=== PATIENT | female | born 1960 | race Caucasian/White ===

== ENCOUNTER 2016-11-10 05:49 | Inpatient (IN) | payer BC, OTHER, SELFPAY ==
[2016-11-10] MEDS ORDERED: Diltiazem 25 MG/5 ML SDV IVPUSH ONE ×2 (06:13→06:51)
[2016-11-10] MEDS ORDERED: Furosemide 40 MG/4 ML VIAL IVPUSH ONE (06:13)
[2016-11-10] MEDS ORDERED: Diltiazem 100 MG in Sodium Chloride 0.9% 100 ML IV SCH (06:15)
[2016-11-10] MEDS ORDERED: Sodium Chloride 0.9% 1,000 ML IV SCH (06:15)
--- NOTE | 2016-11-10 06:20 | EDM.PDOC ---
<August Hairston - Last Filed: 11/10/16 07:58> ED HISTORY OF PRESENT ILLNESS - General Chief Complaint: Respiratory Problem Stated Complaint: SOB Time Seen by Provider: 11/10/16 06:00 - Related Data Allergies/ADRs: Allergies Allergy/AdvReac Type Severity Reaction Status Date / Time erythromycin base Allergy Swelling Verified 11/10/16 11:36 Home Meds: Home Meds Losartan [Cozaar] 25 mg PO DAILY 08/31/14 [History] Sertraline [Zoloft] 50 mg PO DAILY 08/31/14 [History] Course - Vital Signs Last Recorded V/S: Last Vital Signs Temp 36.6 C 11/11/16 23:45 Pulse 92 11/11/16 23:39 Resp 16 11/11/16 23:45 BP 133/75 11/12/16 02:14 Pulse Ox 100 11/11/16 23:45 - Orders/Labs/Meds Orders: Medication Orders Apixaban (Eliquis) 5 mg PO BID [facility] Last Admin: 11/11/16 20:14 Dose: 5 mg Admin: 11/11/16 08:55 Dose: Not Given Admin: 11/11/16 07:58 Dose: 5 mg Admin: 11/10/16 20:58 Dose: 5 mg Admin: 11/10/16 14:03 Dose: 5 mg Diltiazem HCl (Cardizem Cd) 120 mg PO DAILY@1200 XIN Last Admin: 11/11/16 11:08 Dose: Not Given Admin: 11/11/16 10:46 Dose: 120 mg Diltiazem HCl 100 mg/ Sodium (Chloride) 100 mls @ 10 mls/hr IV ASDIRECTED XIN PRN Reason: 10 MG/HR Last Admin: 11/10/16 06:30 Dose: 10 mg/hr, 10 mls/hr Losartan Potassium (Cozaar) 25 mg PO DAILY [facility] Last Admin: 11/11/16 07:59 Dose: 25 mg Admin: 11/10/16 12:59 Dose: 25 mg Metoprolol Tartrate (Lopressor) 5 mg IVPUSH Q6H PRN PRN Reason: Tachycardia Last Admin: 11/11/16 23:39 Dose: 5 mg Admin: 11/11/16 14:36 Dose: 5 mg Admin: 11/11/16 08:03 Dose: 5 mg Admin: 11/10/16 21:01 Dose: 5 mg Metoprolol Tartrate (Lopressor) 25 mg PO TID [facility] Oxymetazoline HCl (Afrin Original 0.05% Nasal [place]) 0 ml RIANA BID PRN PRN Reason: Other Last Admin: 11/11/16 20:15 Dose: 1 spray Sertraline HCl (Zoloft) 50 mg PO DAILY [facility] Last Admin: 11/11/16 07:59 Dose: 50 mg Simvastatin (Zocor) 10 mg PO BEDTIME XIN Last Admin: 11/11/16 20:14 Dose: 10 mg Labs: Laboratory Tests 11/10/16 11/10/16 11/10/16 Range/Units 06:04 06:15 06:15 WBC 9.70 (3.98-10.04) K/mm3 RBC 4.52 (3.98-5.22) M/mm3 Hgb 13.2 (11.2-15.7) gm/L Hct 42.7 (34.1-44.9) % MCV 94.5 (79.4-94.8) fl MCH 29.2 (25.6-32.2) pg MCHC 30.9 L (32.2-35.5) g/dl RDW Std Deviation 45.1 (36.4-46.3) fL Plt Count 248 (182-369) K/mm3 MPV 11.6 (9.4-12.3) fl Neutrophils % (Manual) 74 H (40-60) % Band Neutrophils % 0 (0-10) % Lymphocytes % (Manual) 21 (20-40) % Atypical Lymphs % 0 % Monocytes % (Manual) 4 (2-10) % Eosinophils % (Manual) 1 (0.7-5.8) % Basophils % (Manual) 0 L (0.1-1.2) Platelet Estimate Adequate RBC Morph Comment Normal PT 10.3 (8.0-13.0) SECONDS INR 0.95 Sodium (136-145) mEq/L Potassium (3.5-5.1) mEq/L Chloride (98-107) mEq/L Carbon Dioxide (21-32) mEq/L Anion Gap (5-15) BUN (7-18) mg/dL Creatinine (0.55-1.02) mg/dL Est Cr Clr Drug Dosing mL/min Estimated GFR (MDRD) (>60) mL/min BUN/Creatinine Ratio (14-18) Glucose (74-106) mg/dL Calcium (8.5-10.1) mg/dL Magnesium (1.8-2.4) mg/dl Total Bilirubin (0.2-1.0) mg/dL AST (15-37) U/L ALT (14-59) U/L Alkaline Phosphatase (46-116) U/L CK-MB (CK-2) (0-3.6) ng/ml Troponin I (0.00-0.056) ng/mL C-Reactive Protein (<1.0) mg/dL B-Natriuretic Peptide (0-100) pg/mL Total Protein (6.4-8.2) g/dl Albumin (3.4-5.0) g/dl Globulin gm/dL Albumin/Globulin Ratio (1-2) TSH 3rd Generation (0.358-3.74) uIU/mL Urine Color (Yellow) Urine Appearance (Clear) Urine pH (5.0-8.0) Ur Specific [place] (1.005-1.030) Urine Protein (Negative) Urine Glucose (UA) (Negative) Urine Ketones (Negative) Urine Occult Blood (Negative) Urine Nitrite (Negative) Urine Bilirubin (Negative) Urine Urobilinogen (0.2-1.0) Ur Leukocyte Esterase (Negative) Urine RBC (0-5) /hpf Urine WBC (0-5) /hpf Ur Squamous Epith Cells (0-5) /hpf Urine Bacteria (FEW) /hpf Urine Mucus (FEW) /hpf Mycoplasma pneumon IgM Negative (NEGATIVE) 11/10/16 11/10/16 11/10/16 Range/Units 06:15 06:15 07:47 WBC (3.98-10.04) K/mm3 RBC (3.98-5.22) M/mm3 Hgb (11.2-15.7) gm/L Hct (34.1-44.9) % MCV (79.4-94.8) fl MCH (25.6-32.2) pg MCHC (32.2-35.5) g/dl RDW Std Deviation (36.4-46.3) fL Plt Count (182-369) K/mm3 MPV (9.4-12.3) fl Neutrophils % (Manual) (40-60) % Band Neutrophils % (0-10) % Lymphocytes % (Manual) (20-40) % Atypical Lymphs % % Monocytes % (Manual) (2-10) % Eosinophils % (Manual) (0.7-5.8) % Basophils % (Manual) (0.1-1.2) Platelet Estimate RBC Morph Comment PT (8.0-13.0) SECONDS INR Sodium 141 (136-145) mEq/L Potassium 3.9 (3.5-5.1) mEq/L Chloride 104 (98-107) mEq/L Carbon Dioxide 25 (21-32) mEq/L Anion Gap 15.9 H (5-15) BUN 15 (7-18) mg/dL Creatinine 0.8 (0.55-1.02) mg/dL Est Cr Clr Drug Dosing 82.04 mL/min Estimated GFR (MDRD) > 60 (>60) mL/min BUN/Creatinine Ratio 18.8 H (14-18) Glucose 158 H (74-106) mg/dL Calcium 9.0 (8.5-10.1) mg/dL Magnesium 1.6 L (1.8-2.4) mg/dl Total Bilirubin 0.3 (0.2-1.0) mg/dL AST 19 (15-37) U/L ALT 36 (14-59) U/L Alkaline Phosphatase 92 (46-116) U/L CK-MB (CK-2) 1.2 (0-3.6) ng/ml Troponin I < 0.017 (0.00-0.056) ng/mL C-Reactive Protein 0.8 (<1.0) mg/dL B-Natriuretic Peptide 81 (0-100) pg/mL Total Protein 7.6 (6.4-8.2) g/dl Albumin 3.7 (3.4-5.0) g/dl Globulin 3.9 gm/dL Albumin/Globulin Ratio 1.0 (1-2) TSH 3rd Generation 2.181 (0.358-3.74) uIU/mL Urine Color Light yellow (Yellow) Urine Appearance Clear (Clear) Urine pH 7.0 (5.0-8.0) Ur Specific [place] 1.015 (1.005-1.030) Urine Protein Negative (Negative) Urine Glucose (UA) Negative (Negative) Urine Ketones Negative (Negative) Urine Occult Blood Negative (Negative) Urine Nitrite Negative (Negative) Urine Bilirubin Negative (Negative) Urine Urobilinogen 0.2 (0.2-1.0) Ur Leukocyte Esterase Negative (Negative) Urine RBC 0-5 (0-5) /hpf Urine WBC 0-5 (0-5) /hpf Ur Squamous Epith Cells 0-5 (0-5) /hpf Urine Bacteria Occasional (FEW) /hpf Urine Mucus Not seen (FEW) /hpf Mycoplasma pneumon IgM (NEGATIVE) Meds: Medications Generic Name Dose Route Start Last Admin Trade Name Freq PRN Reason Stop Dose Admin Apixaban 5 mg 11/10/16 13:30 11/11/16 20:14 Eliquis PO 5 mg BID XIN Administration Diltiazem HCl 120 mg 11/11/16 12:00 11/11/16 11:08 Cardizem Cd PO Not Given DAILY@1200 XIN Diltiazem HCl 100 mg/ Sodium 100 mls @ 10 mls/hr 11/10/16 06:15 11/10/16 06: 30 Chloride IV 10 mg/hr ASDIRECTED XIN 10 mls/hr 10 MG/HR Administration Losartan Potassium 25 mg 11/10/16 12:15 11/11/16 07:59 Cozaar PO 25 mg DAILY XIN Administration Metoprolol Tartrate 5 mg 11/10/16 15:24 11/11/16 23:39 Lopressor IVPUSH 5 mg Q6H PRN Administration Tachycardia Metoprolol Tartrate 25 mg 11/12/16 09:00 Lopressor PO TID XIN Oxymetazoline HCl 0 ml 11/11/16 18:13 11/11/16 20:15 Afrin Original 0.05% Nasal [place] RIANA 1 spray BID PRN Administration Other Sertraline HCl 50 mg 11/11/16 09:00 11/11/16 07:59 Zoloft PO 50 mg DAILY XIN Administration Simvastatin 10 mg 11/11/16 21:00 11/11/16 20:14 Zocor PO 10 mg BEDTIME XIN Administration Discontinued Medications Generic Name Dose Route Start Last Admin Trade Name Freq PRN Reason Stop Dose Admin Diltiazem HCl 10 mg 11/10/16 06:13 11/10/16 06:27 Diltiazem IVPUSH 03/06/17 06:14 10 mg ONETIME ONE Administration Diltiazem HCl 10 mg 11/10/16 06:51 11/10/16 07:17 Diltiazem IVPUSH 11/10/16 06:52 10 mg ONETIME ONE Administration Diltiazem HCl 30 mg 11/10/16 14:00 11/10/16 13:00 Cardizem PO 30 mg Q8HR XIN Administration Diltiazem HCl 60 mg 11/10/16 22:00 11/11/16 06:32 Cardizem PO 60 mg Q8HR XIN Administration Diltiazem HCl 30 mg 11/10/16 15:23 11/10/16 15:39 Cardizem PO 11/10/16 15:24 30 mg ONETIME ONE Administration Furosemide 40 mg 11/10/16 06:13 11/10/16 06:23 Lasix IVPUSH 11/10/16 06:14 40 mg NOW ONE Administration Furosemide 20 mg 11/11/16 10:31 11/11/16 10:46 Lasix IVPUSH 11/11/16 10:32 20 mg NOW ONE Administration Sodium Chloride 1,000 mls @ 75 mls/hr 11/10/16 06:15 11/10/16 06:25 Normal Saline IV 75 mls/hr ASDIRECTED XIN Administration Magnesium Sulfate 2 gm/ Premix 50 mls @ 25 mls/hr 11/10/16 15:30 11/10/16 16: 20 IV 11/10/16 17:29 25 mls/hr ONETIME ONE Administration Metoprolol Tartrate 25 mg 11/11/16 21:00 11/11/16 20:14 Lopressor PO 25 mg BID XIN Administration Metoprolol Tartrate 25 mg 11/11/16 15:44 11/11/16 16:08 Lopressor PO 11/11/16 15:45 25 mg ONETIME ONE Administration - Re-Assessments/Exams Free Text/Narrative Re-Assessment/Exam: 11/10/16 07:50. have assumed care from Dr. James after change of shift. I agree with his history and exam. Patient has voided 1200 cc. She is still short of breath but feeling better from arrival. her chest pain is gone. Her troponin did come back negative. chest x-ray shows significant pulmonary congestion. Other labs as documented. Her rate is running in the 90s to low 100s on diltiazem drip. I discussed with Dr. Jennings, hospitalist end user consultant. Arrangements have been made for inpatient admission. She has asked that I submit an order for cardiac ultrasound. That has been done. Blood pressure and sats remained stable. Departure - Departure Time of Disposition: 07:40 Disposition: Admitted As Inpatient 68 Condition: fair Clinical Impression: Atrial fibrillation with rapid ventricular response Congestive heart failure Qualifiers: Congestive heart failure type: unspecified congestive heart failure type Congestive heart failure chronicity: acute Qualified Code(s): I50.9 - Heart failure, unspecified ED Communication - Discussed Case With (1) Discussed Case With (1): Admitting Provider (Dr Jennings, decion to admit at about 7:40) <Roberto James - Last Filed: 11/12/16 04:18> ED HISTORY OF PRESENT ILLNESS - General Source of Information: Reports: Patient History Limitations: Reports: No limitations - History of Present Illness INITIAL COMMENTS - FREE TEXT/NARRATIVE: 55-year-old female presents to the ED with complaints of feeling short of breath and a heaviness in her central chest that does not radiate through the back neck shoulders or arms. Associated cough without any phlegm production. He aware of palpitations or feeling like her heart is racing off-and-on tonight. She states she felt fine when she went to bed but shortly thereafter developed symptoms of palpitations and gradually worsening shortness of breath overnight. She was unable to get any sleep. She does not believe she's ever has any similar problems. She takes medication for depression and for hypertension. No recent changes in medications. She states she could walk from the parking lot into the hospital with a fairly normal pace. Denies feeling dizzy or lightheaded. A heaviness or pain in her chest tends to wax and wane. She has no known heart problems.used to smoke but quit 24 years ago. Currently on no diet medications. No heavy alcohol use over the weekend. Symptom Onset Date: 11/09/16 Symptom Onset Time: 00:00 Timing/Duration: Reports: Hour(s):, Sudden onset, Waxing/waning Severity: moderate Location, General: Reports: chest (chest heaviness waxes and wanes but at times was quite heavy like an elephant sitting on her chest. Associated with dyspnea and minimal nonproductive cough.) Quality: Reports: Dull, Pressure. Denies: Same as previous episode Improves with: Reports: None Worsens with: Reports: Other Context, General: Reports: Other (was lying down in bed when symptoms seemed to come on.). Denies: Activity (wworsens when she lies down. She's been sitting up most of the night.), Exercise, Lifting, Sick contact, Trauma Associated Symptoms (General): Reports: chest pain, cough (see history of present illness), shortness of breath. 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 (see below) (none) Past Medical History Cardiovascular History: Reports: Hypertension Psychiatric History: Reports: Anxiety, Depression Endocrine/Metabolic History: Reports: Obesity/BMI 30+ Social & Family History - Tobacco Use Smoking Status *Q: Never Smoker (quit 24 years ago.) - Alcohol Use Days Per Week of Alcohol Use: 2 Number of Drinks Per Day: 2 Total Drinks Per Week: 4 - Recreational Drug Use Recreational Drug Use: No - Living Situation & Occupation Living situation: Reports: Occupation: employed ED ROS GENERAL - Review of Systems Review Of Systems: See Below Constitutional: Reports: weakness, fatigue. Denies: weight loss HEENT: Reports: No symptoms Respiratory: Reports: shortness of breath, cough (nonproductive). Denies: wheezing, pleuritic chest pain, sputum, hemoptysis, other Cardiovascular: Reports: Chest pain (intermittent chest heaviness mostly central chest.), Blood pressure problem, Dyspnea on exertion, Orthopnea, Palpitations. Denies: Claudication (chronic hypertension but usually well controlled with medication.), Edema, Lightheadedness Endocrine: Reports: fatigue GI/Abdominal: Reports: No symptoms : Reports: no symptoms Musculoskeletal: Reports: back pain Skin: Reports: no symptoms (intermittent also some low back pain and knee pain.) Neurological: Reports: weakness. Denies: confusion, dizziness, headache, numbness, paresthesia, pre-existing deficit, seizure, syncope, tingling, tremors , trouble speaking, difficulty walking, change in speech, gait disturbance Psychiatric: Reports: Depression Hematologic/Lymphatic: Reports: no symptoms Immunologic: Reports: no symptoms ED EXAM, GENERAL - Physical Exam Exam: See Below Exam Limited By: Respiratory distress (she is in mild respiratory distress.) General Appearance: alert, moderate distress (respiratory distress. Skin is cool and a little clammy.) Eye Exam: bilateral eye: normal inspection Throat/Mouth: Normal inspection, Normal lips, Normal teeth, Normal oropharynx, Other (she reports she's just getting over a strep throat. Took course of Zithromax and was finished November 01) Head: atraumatic, normocephalic Neck: normal inspection, supple, non-tender, full range of motion, other ( elevated jugular venous pulsations.). No: carotid bruit, lymphadenopathy (L), lymphadenopathy (R) Respiratory/Chest: lungs clear, normal breath sounds, respiratory distress ( mild tachypnea 24-26 per minute). No: rales, rhonchi, wheezing Cardiovascular: JVD (2 cm below the angle of her mandible.), tachycardia, irregularly irregular (rate as high as 158 per minute and monitor reveals atrial fibrillation which she is not known to have.). No: normal peripheral pulses Peripheral Pulses: 1+: posterior tibial (L) (pulses are faint he felt in her feet.), posterior tibial (R), dorsalis pedis (L), dorsalis pedis (R) GI/Abdominal: normal bowel sounds, soft, non tender, no organomegaly, no abnormal bruit, no mass, other (obesity limits ability to palpate solid organs.) Back Exam: normal inspection, full range of motion. No: CVA tenderness (L), CVA tenderness (R) Extremities: pedal edema (trace edema around the ankles and dorsal feet.) Neurological: alert, oriented, CN II-XII intact, normal cognition, normal gait Psychiatric: normal mood, anxious (mild to moderate) Skin Exam: Cool, Diaphoretic (very slightly diaphoretic) EKG INTERPRETATION EKG Date: 11/10/16 Time: 06:05 Rhythm: a-fib Rate (beats/min): 132 (rate ranges from 108-158 per minute) [place]: normal P-wave: absent QRS: other (early R wave transition.) ST-T: depressed (depressed V3 to V6 and lead 2.) QT: shortened EKG Interpretation Comments: atrial fibrillation with rapid ventricular rate. Cannot rule out ischemia in the anterior apex of the heart. Course - Orders/Labs/Meds Orders: Medication Orders Apixaban (Eliquis) 5 mg PO BID [facility] Last Admin: 11/11/16 20:14 Dose: 5 mg Admin: 11/11/16 08:55 Dose: Not Given Admin: 11/11/16 07:58 Dose: 5 mg Admin: 11/10/16 20:58 Dose: 5 mg Admin: 11/10/16 14:03 Dose: 5 mg Diltiazem HCl (Cardizem Cd) 120 mg PO DAILY@1200 [facility] Last Admin: 11/11/16 11:08 Dose: Not Given Admin: 11/11/16 10:46 Dose: 120 mg Diltiazem HCl 100 mg/ Sodium (Chloride) 100 mls @ 10 mls/hr IV ASDIRECTED [facility] PRN Reason: 10 MG/HR Last Admin: 11/10/16 06:30 Dose: 10 mg/hr, 10 mls/hr Losartan Potassium (Cozaar) 25 mg PO DAILY [facility] Last Admin: 11/11/16 07:59 Dose: 25 mg Admin: 11/10/16 12:59 Dose: 25 mg Metoprolol Tartrate (Lopressor) 5 mg IVPUSH Q6H PRN PRN Reason: Tachycardia Last Admin: 11/11/16 23:39 Dose: 5 mg Admin: 11/11/16 14:36 Dose: 5 mg Admin: 11/11/16 08:03 Dose: 5 mg Admin: 11/10/16 21:01 Dose: 5 mg Metoprolol Tartrate (Lopressor) 25 mg PO TID [facility] Oxymetazoline HCl (Afrin Original 0.05% Nasal [place]) 0 ml RIANA BID PRN PRN Reason: Other Last Admin: 11/11/16 20:15 Dose: 1 spray Sertraline HCl (Zoloft) 50 mg PO DAILY [facility] Last Admin: 11/11/16 07:59 Dose: 50 mg Simvastatin (Zocor) 10 mg PO BEDTIME [facility] Last Admin: 11/11/16 20:14 Dose: 10 mg Labs: Laboratory Tests 11/10/16 11/10/16 11/10/16 Range/Units 06:04 06:15 06:15 WBC 9.70 (3.98-10.04) K/mm3 RBC 4.52 (3.98-5.22) M/mm3 Hgb 13.2 (11.2-15.7) gm/L Hct 42.7 (34.1-44.9) % MCV 94.5 (79.4-94.8) fl MCH 29.2 (25.6-32.2) pg MCHC 30.9 L (32.2-35.5) g/dl RDW Std Deviation 45.1 (36.4-46.3) fL Plt Count 248 (182-369) K/mm3 MPV 11.6 (9.4-12.3) fl Neutrophils % (Manual) 74 H (40-60) % Band Neutrophils % 0 (0-10) % Lymphocytes % (Manual) 21 (20-40) % Atypical Lymphs % 0 % Monocytes % (Manual) 4 (2-10) % Eosinophils % (Manual) 1 (0.7-5.8) % Basophils % (Manual) 0 L (0.1-1.2) Platelet Estimate Adequate RBC Morph Comment Normal PT 10.3 (8.0-13.0) SECONDS INR 0.95 Sodium (136-145) mEq/L Potassium (3.5-5.1) mEq/L Chloride (98-107) mEq/L Carbon Dioxide (21-32) mEq/L Anion Gap (5-15) BUN (7-18) mg/dL Creatinine (0.55-1.02) mg/dL Est Cr Clr Drug Dosing mL/min Estimated GFR (MDRD) (>60) mL/min BUN/Creatinine Ratio (14-18) Glucose (74-106) mg/dL Calcium (8.5-10.1) mg/dL Magnesium (1.8-2.4) mg/dl Total Bilirubin (0.2-1.0) mg/dL AST (15-37) U/L ALT (14-59) U/L Alkaline Phosphatase (46-116) U/L CK-MB (CK-2) (0-3.6) ng/ml Troponin I (0.00-0.056) ng/mL C-Reactive Protein (<1.0) mg/dL B-Natriuretic Peptide (0-100) pg/mL Total Protein (6.4-8.2) g/dl Albumin (3.4-5.0) g/dl Globulin gm/dL Albumin/Globulin Ratio (1-2) TSH 3rd Generation (0.358-3.74) uIU/mL Urine Color (Yellow) Urine Appearance (Clear) Urine pH (5.0-8.0) Ur Specific [place] (1.005-1.030) Urine Protein (Negative) Urine Glucose (UA) (Negative) Urine Ketones (Negative) Urine Occult Blood (Negative) Urine Nitrite (Negative) Urine Bilirubin (Negative) Urine Urobilinogen (0.2-1.0) Ur Leukocyte Esterase (Negative) Urine RBC (0-5) /hpf Urine WBC (0-5) /hpf Ur Squamous Epith Cells (0-5) /hpf Urine Bacteria (FEW) /hpf Urine Mucus (FEW) /hpf Mycoplasma pneumon IgM Negative (NEGATIVE) 11/10/16 11/10/16 11/10/16 Range/Units 06:15 06:15 07:47 WBC (3.98-10.04) K/mm3 RBC (3.98-5.22) M/mm3 Hgb (11.2-15.7) gm/L Hct (34.1-44.9) % MCV (79.4-94.8) fl MCH (25.6-32.2) pg MCHC (32.2-35.5) g/dl RDW Std Deviation (36.4-46.3) fL Plt Count (182-369) K/mm3 MPV (9.4-12.3) fl Neutrophils % (Manual) (40-60) % Band Neutrophils % (0-10) % Lymphocytes % (Manual) (20-40) % Atypical Lymphs % % Monocytes % (Manual) (2-10) % Eosinophils % (Manual) (0.7-5.8) % Basophils % (Manual) (0.1-1.2) Platelet Estimate RBC Morph Comment PT (8.0-13.0) SECONDS INR Sodium 141 (136-145) mEq/L Potassium 3.9 (3.5-5.1) mEq/L Chloride 104 (98-107) mEq/L Carbon Dioxide 25 (21-32) mEq/L Anion Gap 15.9 H (5-15) BUN 15 (7-18) mg/dL Creatinine 0.8 (0.55-1.02) mg/dL Est Cr Clr Drug Dosing 82.04 mL/min Estimated GFR (MDRD) > 60 (>60) mL/min BUN/Creatinine Ratio 18.8 H (14-18) Glucose 158 H (74-106) mg/dL Calcium 9.0 (8.5-10.1) mg/dL Magnesium 1.6 L (1.8-2.4) mg/dl Total Bilirubin 0.3 (0.2-1.0) mg/dL AST 19 (15-37) U/L ALT 36 (14-59) U/L Alkaline Phosphatase 92 (46-116) U/L CK-MB (CK-2) 1.2 (0-3.6) ng/ml Troponin I < 0.017 (0.00-0.056) ng/mL C-Reactive Protein 0.8 (<1.0) mg/dL B-Natriuretic Peptide 81 (0-100) pg/mL Total Protein 7.6 (6.4-8.2) g/dl Albumin 3.7 (3.4-5.0) g/dl Globulin 3.9 gm/dL Albumin/Globulin Ratio 1.0 (1-2) TSH 3rd Generation 2.181 (0.358-3.74) uIU/mL Urine Color Light yellow (Yellow) Urine Appearance Clear (Clear) Urine pH 7.0 (5.0-8.0) Ur Specific [place] 1.015 (1.005-1.030) Urine Protein Negative (Negative) Urine Glucose (UA) Negative (Negative) Urine Ketones Negative (Negative) Urine Occult Blood Negative (Negative) Urine Nitrite Negative (Negative) Urine Bilirubin Negative (Negative) Urine Urobilinogen 0.2 (0.2-1.0) Ur Leukocyte Esterase Negative (Negative) Urine RBC 0-5 (0-5) /hpf Urine WBC 0-5 (0-5) /hpf Ur Squamous Epith Cells 0-5 (0-5) /hpf Urine Bacteria Occasional (FEW) /hpf Urine Mucus Not seen (FEW) /hpf Mycoplasma pneumon IgM (NEGATIVE) Meds: Medications Generic Name Dose Route Start Last Admin Trade Name Freq PRN Reason Stop Dose Admin Apixaban 5 mg 11/10/16 13:30 11/11/16 20:14 Eliquis PO 5 mg BID [facility] Administration Diltiazem HCl 120 mg 11/11/16 12:00 11/11/16 11:08 Cardizem Cd PO Not Given DAILY@1200 XIN Diltiazem HCl 100 mg/ Sodium 100 mls @ 10 mls/hr 11/10/16 06:15 11/10/16 06: 30 Chloride IV 10 mg/hr ASDIRECTED XIN 10 mls/hr 10 MG/HR Administration Losartan Potassium 25 mg 11/10/16 12:15 11/11/16 07:59 Cozaar PO 25 mg DAILY XIN Administration Metoprolol Tartrate 5 mg 11/10/16 15:24 11/11/16 23:39 Lopressor IVPUSH 5 mg Q6H PRN Administration Tachycardia Metoprolol Tartrate 25 mg 11/12/16 09:00 Lopressor PO TID XIN Oxymetazoline HCl 0 ml 11/11/16 18:13 11/11/16 20:15 Afrin Original 0.05% Nasal [place] RIANA 1 spray BID PRN Administration Other Sertraline HCl 50 mg 11/11/16 09:00 11/11/16 07:59 Zoloft PO 50 mg DAILY XIN Administration Simvastatin 10 mg 11/11/16 21:00 11/11/16 20:14 Zocor PO 10 mg BEDTIME XIN Administration Discontinued Medications Generic Name Dose Route Start Last Admin Trade Name Freq PRN Reason Stop Dose Admin Diltiazem HCl 10 mg 11/10/16 06:13 11/10/16 06:27 Diltiazem IVPUSH 11/10/16 06:14 10 mg ONETIME ONE Administration Diltiazem HCl 10 mg 11/10/16 06:51 11/10/16 07:17 Diltiazem IVPUSH 11/10/16 06:52 10 mg ONETIME ONE Administration Diltiazem HCl 30 mg 11/10/16 14:00 11/10/16 13:00 Cardizem PO 30 mg Q8HR XIN Administration Diltiazem HCl 60 mg 11/10/16 22:00 11/11/16 06:32 Cardizem PO 60 mg Q8HR XIN Administration Diltiazem HCl 30 mg 11/10/16 15:23 11/10/16 15:39 Cardizem PO 11/10/16 15:24 30 mg ONETIME ONE Administration Furosemide 40 mg 11/10/16 06:13 11/10/16 06:23 Lasix IVPUSH 11/10/16 06:14 40 mg NOW ONE Administration Furosemide 20 mg 11/11/16 10:31 11/11/16 10:46 Lasix IVPUSH 11/11/16 10:32 20 mg NOW ONE Administration Sodium Chloride 1,000 mls @ 75 mls/hr 11/10/16 06:15 11/10/16 06:25 Normal Saline IV 75 mls/hr ASDIRECTED XIN Administration Magnesium Sulfate 2 gm/ Premix 50 mls @ 25 mls/hr 11/10/16 15:30 11/10/16 16: 20 IV 11/10/16 17:29 25 mls/hr ONETIME ONE Administration Metoprolol Tartrate 25 mg 11/11/16 21:00 11/11/16 20:14 Lopressor PO 25 mg BID XIN Administration Metoprolol Tartrate 25 mg 11/11/16 15:44 11/11/16 16:08 Lopressor PO 11/11/16 15:45 25 mg ONETIME ONE Administration - Radiology Interpretation Free Text/Narrative:: 55-year-old female arrives in the ED with filling of palpitations and intermittent waxing and waning chest pressure discomfort overnight. She believes symptoms started shortly after she went to bed last night around midnight. She is aware of intermittent palpitations in the chest and heart racing. Associated heaviness in her chest intermittently increasing shortness of breath overnight. Nonproductive cough development. No fever or chills. For a while she thought she was just coming down with an upper respiratory tract infection. On presentation to the ED heart rate was noted to be fast and irregularly irregular compatible with age fibrillation. She has no history of A. fib. Weight is 108-158 per minute. ECG suggests some ST segment depression V3 to be 6 as well as in lead 2 suggestive of possible ischemic changes. Plan one view chest x-ray. Routine labs to include a BNP TSH serum magnesium level. She'll be given Lasix 40 mg IV as clinically she is in pulmonary edema. O2 will be provided at 2 L per minute by nasal prongs to relieve some of her air hunger. We'll start Cardizem 10 mg IV bolus followed by 10 mg per hour drip. - Re-Assessments/Exams Free Text/Narrative Re-Assessment/Exam: 11/10/16 06:41heart rate is around 100 per minute still in atrial fibrillation. Repeat is 164/100. O2 sats are 97% on 2 L. 11/10/16 06:52shbarbie feels like she can get a deeper breath of air now. There is no more heaviness in her central chest. Heart rate is souring anywhere between 114 to as high as 1:30 still undergoing to give her further 10 mg bolus of Cardizem. It may also help further reduce her blood pressure which is still 165/ 100. Labs have not yet started to be run yet. As it is changes shift I will be changing training care old this patient over to Dr. Schulz. An ICU bed is available once labs are back. I have not yet spoken to the end user consultant hospitalist.
--- NOTE | 2016-11-10 07:36 | CR ---
Chest: Portable view of the chest was obtained. Comparison: No previous chest x-ray. Heart size and mediastinum are within normal limits for portable technique. Lungs are clear with no acute infiltrates. Bony structures show degenerative spurring within the right acromioclavicular joint. Minimal scoliosis is present. Impression: 1. Incidental findings. Nothing acute is identified on portable chest x-ray. Diagnostic code #2
--- NOTE | 2016-11-10 10:56 | PCM.HP ---
H&P History of Present Illness - General Date of Service: 11/10/16 Admit Problem/Dx: Admission Diagnosis/Problem Admission Diagnosis/Problem Atrial fibrillation Source of Information: Patient, Provider History Limitations: Reports: No limitations - History of Present Illness Initial Comments - Free Text/Narative: 55 year old female with a BMI 51.8, PMH hypertension, ORIANA unknown, has had several recent episodes of palpitations and chest pain with the last 24-48 hours. The patient also reports a cough, chest X ray suggest pulmonary congestion. The patient received IV lasix in the ED; a cardizem gtt was started, the patient is currently in AFib with a controlled venticular rate. Onset of Symptoms: Reports: sudden Symptom Onset Date: 11/09/16 Duration of Symptoms: Reports: Day(s):, Getting worse Location: Reports: chest Quality: Reports: Pressure Improves with: Reports: Medication Worsens with: Reports: None Associated Symptoms: Reports: shortness of breath - Related Data Allergies/Adverse Reactions: Allergies Allergy/AdvReac Type Severity Reaction Status Date / Time erythromycin base Allergy Swelling Verified 11/10/16 11:36 Home Medications: Home Meds Losartan [Cozaar] 25 mg PO DAILY 08/31/14 [History] Sertraline [Zoloft] 50 mg PO DAILY 08/31/14 [History] Past Medical History Cardiovascular History: Reports: Hypertension Psychiatric History: Reports: Anxiety, Depression Endocrine/Metabolic History: Reports: Obesity/BMI 30+ - Past Surgical History HEENT Surgical History: Reports: Tonsillectomy Social & Family History - Family History Family Medical History: Noncontributory - Tobacco Use Smoking Status *Q: Never Smoker (quit 24 years ago.) Years of Tobacco use: 5 Packs/Tins Daily: 0.5 - Caffeine Use Caffeine Use: Reports: Coffee - Alcohol Use Days Per Week of Alcohol Use: 2 Number of Drinks Per Day: 2 Total Drinks Per Week: 4 - Recreational Drug Use Recreational Drug Use: No - Living Situation & Occupation Living situation: Reports: Occupation: employed H&P Review of Systems - Review of Systems: Review Of Systems: See Below General: Reports: weakness, fatigue HEENT: Reports: no symptoms Pulmonary: Reports: shortness of breath Cardiovascular: Reports: chest pain Gastrointestinal: Reports: No symptoms Genitourinary: Reports: no symptoms Musculoskeletal: Reports: no symptoms Skin: Reports: no symptoms Psychiatric: Reports: no symptoms Neurological: Reports: no symptoms Hematologic/Lymphatic: Reports: no symptoms Immunologic: Reports: no symptoms Exam - Exam Exam: See Below - Vital Signs Vital Signs: Last Vital Signs Temp 36.9 C 11/10/16 08:28 Pulse 112 H 11/10/16 06:30 Resp 16 11/10/16 08:28 BP 166/89 H 11/10/16 09:00 Pulse Ox 95 11/10/16 08:28 Weight: 154.448 kg - Exam Quality Assessment: DVT prophylaxis General: alert, oriented, cooperative HEENT: Conjunctiva clear, EACs clear, EOMI, Mucosa moist & pink, Nares patent, Normal nasal septum, Pupils equal Neck: supple, trachea midline Lungs: Normal respiratory effort Cardiovascular: regular rate, irregular rhythm, other (distant heart sounds) Abdomen: normal bowel sounds, soft (Female) Exam: Deferred. No: Products of conception Rectal (Female) Exam: Deferred Back Exam: normal inspection Extremities: normal pulses Skin: warm Neurological: cranial nerves intact Neuro Extensive - Mental Status: alert, oriented x3, normal mood/affect, normal cognition, memory intact Neuro Extensive - Motor, Sensory, Reflexes: CN II-XII intact Psychiatric: alert, normal affect, normal mood - Patient Data Result Diagrams: 11/10/16 06:15 11/10/16 06:15 *Q Meaningful Use (ADM) - VTE *Q VTE Criteria *Q: - Stroke *Q Stroke Criteria *Q: - AMI *Q AMI Criteria *Q: Problem List Initiated/Reviewed/Updated: Yes Orders Last 24hrs: Active Orders 24 hr Category Date Time Status Heart Healthy Diet [DIET] Diet 11/10/16 Breakfast Active Medication Orders Diltiazem HCl 100 mg/ Sodium (Chloride) 100 mls @ 10 mls/hr IV ASDIRECTED XIN PRN Reason: 10 MG/HR Last Admin: 11/10/16 06:30 Dose: 10 mg/hr, 10 mls/hr Sodium Chloride (Normal Saline) 1,000 mls @ 75 mls/hr IV ASDIRECTED XIN Last Admin: 11/10/16 06:25 Dose: 75 mls/hr Assessment/Plan Comment:: Impression: A fib with RVR [id number], 2, therefore a 2.2% risk of CVA; score 2 or greater is considered a moderate risk. Chest pain Chronic Morbid Obesity Hypertension Lipid status is unknown Plan: Continue Cardizem gtt Start oral AV farzaneh mark Discuss NOACs, will start Eliquis Wt Loss Ischemic work up including stress test and 2D echo DVT/PT prophylaxis
[2016-11-10] MEDS: Losartan 25 MG Tab PO SCH (12:59)
[2016-11-10] MEDS: Apixaban 5 MG Tab PO SCH ×2 (14:03→20:58)
[2016-11-10] MEDS ORDERED: Magnesium Sulfate/Water 2 GM in Premix Bag 1 BAG IV ONE (15:30)
[2016-11-10] MEDS: Metoprolol Tartrate 5 MG/5 ML SDV IVPUSH PRN (21:01)
[2016-11-11] MEDS: Apixaban 5 MG Tab PO SCH ×3 (07:58→20:14)
[2016-11-11] MEDS: Sertraline 50 MG Tab PO SCH (07:59)
[2016-11-11] MEDS: Losartan 25 MG Tab PO SCH (07:59)
[2016-11-11] MEDS: Metoprolol Tartrate 5 MG/5 ML SDV IVPUSH PRN ×3 (08:03→23:39)
[2016-11-11] MEDS ORDERED: Furosemide 40 MG/4 ML VIAL IVPUSH ONE (10:31)
[2016-11-11] MEDS: Diltiazem 120 MG Cap.CD PO SCH ×2 (10:46→11:08)
--- NOTE | 2016-11-11 11:09 | CR ---
Chest: Frontal view of the chest was obtained. Comparison: Previous chest x-ray of 11/10/16. Heart size is slightly prominent but accentuated from portable technique. Upper mediastinum is within normal limits. Lungs are clear. Bony structures are grossly intact. Impression: 1. Nothing acute is appreciated on portable chest x-ray. Diagnostic code #1
--- NOTE | 2016-11-11 15:39 | PCM.PN ---
- General Info Date of Service: 11/11/16 Functional Status: Reports: tolerating diet, ambulating, urinating - Review of Systems General: Reports: no symptoms HEENT: Reports: no symptoms Pulmonary: Reports: shortness of breath Cardiovascular: Reports: no symptoms Gastrointestinal: Reports: No symptoms Genitourinary: Reports: no symptoms Musculoskeletal: Reports: no symptoms Skin: Reports: no symptoms Neurological: Reports: no symptoms Psychiatric: Reports: no symptoms - Patient Data Vitals - most recent: Last Vital Signs Temp 36.6 C 11/11/16 12:46 Pulse 108 H 11/11/16 14:36 Resp 16 11/11/16 12:46 BP 155/83 H 11/11/16 14:36 Pulse Ox 95 11/11/16 12:46 Weight - most recent: 152.271 kg I&O - last 24 hours: Intake & Output 11/11/16 11/11/16 11/11/16 06:59 14:59 22:59 Intake Total 525 1246 Output Total 700 800 Balance -175 446 Lab Results last 24 hrs: Laboratory Results - last 24 hr 11/10/16 11/11/16 11/11/16 Range/Units 17:24 05:15 05:15 WBC 9.66 (3.98-10.04) K/mm3 RBC 4.36 (3.98-5.22) M/mm3 Hgb 12.9 (11.2-15.7) gm/L Hct 40.8 (34.1-44.9) % MCV 93.6 (79.4-94.8) fl MCH 29.6 (25.6-32.2) pg MCHC 31.6 L (32.2-35.5) g/dl RDW Std Deviation 45.3 (36.4-46.3) fL Plt Count 229 (182-369) K/mm3 MPV 11.2 (9.4-12.3) fl Neut % (Auto) 71.2 H (34.0-71.1) % Lymph % (Auto) 19.0 L (19.3-51.7) % Turner % (Auto) 7.9 (4.7-12.5) % Eos % (Auto) 1.6 (0.7-5.8) Baso % (Auto) 0.2 (0.1-1.2) % Neut # 6.88 H (1.56-6.13) K/mm3 Lymph # 1.84 (1.18-3.74) K/mm3 Turner # 0.76 H (0.24-0.36) K/mm3 Eos # 0.15 (0.04-0.36) K/mm3 Baso # 0.02 (0.01-0.08) K/mm3 Sodium 141 (136-145) mEq/L Potassium 3.9 (3.5-5.1) mEq/L Chloride 105 (98-107) mEq/L Carbon Dioxide 28 (21-32) mEq/L Anion Gap 11.9 (5-15) BUN 12 (7-18) mg/dL Creatinine 0.7 (0.55-1.02) mg/dL Est Cr Clr Drug Dosing 93.76 mL/min Estimated GFR (MDRD) > 60 (>60) mL/min BUN/Creatinine Ratio 17.1 (14-18) Glucose 131 H (74-106) mg/dL POC Glucose 99 (70-105) mg/dL Hemoglobin A1c (4.50-6.20) % Calcium 9.1 (8.5-10.1) mg/dL Troponin I < 0.017 (0.00-0.056) ng/mL Triglycerides 127 (<150) mg/dL Cholesterol 172 (<200) mg/dL LDL Cholesterol Direct 104 H* (<100) mg/dL HDL Cholesterol 52.0 (40-59) mg/dL 11/11/16 Range/Units 05:15 WBC (3.98-10.04) K/mm3 RBC (3.98-5.22) M/mm3 Hgb (11.2-15.7) gm/L Hct (34.1-44.9) % MCV (79.4-94.8) fl MCH (25.6-32.2) pg MCHC (32.2-35.5) g/dl RDW Std Deviation (36.4-46.3) fL Plt Count (182-369) K/mm3 MPV (9.4-12.3) fl Neut % (Auto) (34.0-71.1) % Lymph % (Auto) (19.3-51.7) % Turner % (Auto) (4.7-12.5) % Eos % (Auto) (0.7-5.8) Baso % (Auto) (0.1-1.2) % Neut # (1.56-6.13) K/mm3 Lymph # (1.18-3.74) K/mm3 Turner # (0.24-0.36) K/mm3 Eos # (0.04-0.36) K/mm3 Baso # (0.01-0.08) K/mm3 Sodium (136-145) mEq/L Potassium (3.5-5.1) mEq/L Chloride (98-107) mEq/L Carbon Dioxide (21-32) mEq/L Anion Gap (5-15) BUN (7-18) mg/dL Creatinine (0.55-1.02) mg/dL Est Cr Clr Drug Dosing mL/min Estimated GFR (MDRD) (>60) mL/min BUN/Creatinine Ratio (14-18) Glucose (74-106) mg/dL POC Glucose (70-105) mg/dL Hemoglobin A1c 6.30 H (4.50-6.20) % Calcium (8.5-10.1) mg/dL Troponin I (0.00-0.056) ng/mL Triglycerides (<150) mg/dL Cholesterol (<200) mg/dL LDL Cholesterol Direct (<100) mg/dL HDL Cholesterol (40-59) mg/dL Arturo Results last 24 hrs: Microbiology 11/10/16 14:00 Influenza Type A Antigen Screen - Final Nasopharyngeal Swab - Nare, Right NEGATIVE INFLUENZA A VIRUS AG Influenza Type B Antigen Screen - Final NEGATIVE INFLUENZA B VIRUS AG Med Orders - Current: Current Medications Apixaban (Eliquis) 5 mg PO BID [facility] Last Admin: 11/11/16 08:55 Dose: Not Given Diltiazem HCl (Cardizem Cd) 120 mg PO DAILY@1200 [facility] Last Admin: 11/11/16 11:08 Dose: Not Given Diltiazem HCl 100 mg/ Sodium (Chloride) 100 mls @ 10 mls/hr IV ASDIRECTED [facility] PRN Reason: 10 MG/HR Last Admin: 11/10/16 06:30 Dose: 10 mg/hr, 10 mls/hr Losartan Potassium (Cozaar) 25 mg PO DAILY [facility] Last Admin: 11/11/16 07:59 Dose: 25 mg Metoprolol Tartrate (Lopressor) 5 mg IVPUSH Q6H PRN PRN Reason: Tachycardia Last Admin: 11/11/16 14:36 Dose: 5 mg Metoprolol Tartrate (Lopressor) 25 mg PO BID [facility] Sertraline HCl (Zoloft) 50 mg PO DAILY [facility] Last Admin: 11/11/16 07:59 Dose: 50 mg Simvastatin (Zocor) 10 mg PO BEDTIME XIN Discontinued Medications Diltiazem HCl (Diltiazem) 10 mg IVPUSH ONETIME ONE Stop: 11/10/16 06:14 Last Admin: 11/10/16 06:27 Dose: 10 mg Diltiazem HCl (Diltiazem) 10 mg IVPUSH ONETIME ONE Stop: 11/10/16 06:52 Last Admin: 11/10/16 07:17 Dose: 10 mg Diltiazem HCl (Cardizem) 30 mg PO Q8HR [facility] Last Admin: 11/10/16 13:00 Dose: 30 mg Diltiazem HCl (Cardizem) 60 mg PO Q8HR [facility] Last Admin: 11/11/16 06:32 Dose: 60 mg Diltiazem HCl (Cardizem) 30 mg PO ONETIME ONE Stop: 11/10/16 15:24 Last Admin: 11/10/16 15:39 Dose: 30 mg Furosemide (Lasix) 40 mg IVPUSH NOW ONE Stop: 11/10/16 06:14 Last Admin: 11/10/16 06:23 Dose: 40 mg Furosemide (Lasix) 20 mg IVPUSH NOW ONE Stop: 11/11/16 10:32 Last Admin: 11/11/16 10:46 Dose: 20 mg Sodium Chloride (Normal Saline) 1,000 mls @ 75 mls/hr IV ASDIRECTED [facility] Last Admin: 11/10/16 06:25 Dose: 75 mls/hr Magnesium Sulfate 2 gm/ Premix 50 mls @ 25 mls/hr IV ONETIME ONE Stop: 11/10/16 17:29 Last Admin: 11/10/16 16:20 Dose: 25 mls/hr - Exam Quality Assessment: DVT prophylaxis General: alert, oriented, cooperative HEENT: Pupils equal, Pupils reactive, EOMI Neck: supple, trachea midline Lungs: Normal respiratory effort Cardiovascular: regular rate, regular rhythm Abdomen: bowel sounds present, soft, no tenderness, no distension (Female) Exam: Deferred. No: Normal external exam Back Exam: normal inspection Extremities: normal pulses Skin: warm, dry Neurological: no new focal deficit Psy/Mental Status: alert, normal affect, normal mood - Problem List Review Problem List Initiated/Reviewed/Updated: Yes - My Orders Last 24 Hours: My Active Orders 11/10/16 15:24 Metoprolol Tartrate [Lopressor] 5 mg IVPUSH Q6H PRN 11/11/16 08:00 Consult to Physical Therapy [PT Evaluation and Treatment] [CONS] Routine 11/11/16 09:00 Sertraline [Zoloft] 50 mg PO DAILY 11/11/16 09:24 Consult to Diabetic Nurse Specialist [CONS] Routine 11/11/16 10:00 Consult to Occupational Therapy [OT Evaluation and Treatment] [CONS] Routine 11/11/16 12:00 Diltiazem [Cardizem CD] 120 mg PO DAILY@1200 11/11/16 21:00 Metoprolol Tartrate [Lopressor] 25 mg PO BID Simvastatin [Zocor] 10 mg PO BEDTIME 11/12/16 05:00 BASIC METABOLIC PANEL,BMP [CHEM] DAILY CBC WITH AUTO DIFF [HEME] DAILY 11/13/16 05:00 BASIC METABOLIC PANEL,BMP [CHEM] DAILY CBC WITH AUTO DIFF [HEME] DAILY - Plan Plan:: Impression: A fib with RVR [id number], 2, therefore a 2.2% risk of CVA; score 2 or greater is considered a moderate risk. Chest pain, resolved Chronic Morbid Obesity Hypertension Lipid status is unknown Plan: Cardizem gtt off Start oral AV farzaneh mark: Cardizem CD 120 mg daily; lopressor 50 mg TID Eliquis 5mg BID Wt Loss Stress test as an OP. PCP TBA DVT/PT prophylaxis
[2016-11-11] MEDS ORDERED: Metoprolol Tartrate 25 MG Tab PO ONE (15:44)
[2016-11-11] MEDS ORDERED: Oxymetazoline 0.05% Nasal Spray 15 ML Bottle NAS PRN (18:13)
[2016-11-11] MEDS ORDERED: Metoprolol Tartrate 25 MG Tab PO SCH (21:00)
[2016-11-11] MEDS ORDERED: Simvastatin 10 MG Tab PO SCH (21:00)
[2016-11-12] MEDS: Apixaban 5 MG Tab PO SCH (08:24)
[2016-11-12] MEDS: Losartan 25 MG Tab PO SCH (08:24)
[2016-11-12] MEDS: Sertraline 50 MG Tab PO SCH (08:24)
[2016-11-12 08:25] VITALS: BP 158/98
--- NOTE | 2016-11-12 08:56 | PCM.DCSUM1 ---
[id number] Free Text/Narrative:: 55-year-old female with PMH hypertension, ORIANA unknown, presents to the ED with complaints of feeling short of breath and a heaviness in her central chest that does not radiate through the back neck shoulders or arms. Associated cough without any phlegm production. He aware of palpitations or feeling like her heart is racing off-and-on tonight. She states she felt fine when she went to bed but shortly thereafter developed symptoms of palpitations and gradually worsening shortness of breath overnight. She was unable to get any sleep. She does not believe she's ever has any similar problems. She takes medication for depression and for hypertension. No recent changes in medications. She states she could walk from the parking lot into the hospital with a fairly normal pace. Denies feeling dizzy or lightheaded. A heaviness or pain in her chest tends to wax and wane. She has no known heart problems.used to smoke but quit 24 years ago. Currently on no diet medications. No heavy alcohol use over the weekend. The patient also reports a cough, chest X ray suggest pulmonary congestion. The patient received IV lasix in the ED; a cardizem gtt was started, the patient is currently in AFib with a controlled venticular rate. Hospitalist service is consulted for admission for atrial fibrillation with rapid ventricular rate. Patient was admitted to ICU titrated on cardiazem drip for heart rate control. She was switched to oral cardiazem TID and lopressor TID. She did require IV lopressor several times for heart rate control as well. Blood pressure was significantly elevated; medications were adjusted and control was gained. She was started on Eliquis BID for CVA prevention due to elevated CHADS score with afib. She was feeling much better after heart rate and b/p controlled. She worked with nursing educator and dietitian for dietary changes and weight loss diet. She will be discharged home today with follow up with her PCP within 5-7 days for recheck. - Discharge Data Discharge Date: 11/12/16 (admit date 11/10/16) Discharge Disposition: Home, Self-Care 01 Condition: Good - Patient Summary/Data Operative Procedure(s) Performed: None Complications: None Consults: Consultations 11/10/16 14:00 Consult to Dietary [Consult to [facility]] [CONS] Routine 11/11/16 08:00 Consult to Physical Therapy [PT Evaluation and Treatment] [CONS] Routine 11/11/16 09:24 Consult to Diabetic Nurse Specialist [CONS] Routine 11/11/16 10:00 Consult to Occupational Therapy [OT Evaluation and Treatment] [CONS] Routine Labs Pending at D/C: None Recommended Follow-up Testing/Procedures: Follow up with PCP within 5-7 days for recheck Planned Operative Procedure(s) after DC: None Hospital Course: As above - Patient Instructions Diet: Heart Healthy Diet, Low Sodium Activity: As Tolerated (exercise 10-30 minutes daily) Showering/Bathing: May Shower Notify Provider of: Fever, Increased Pain, Nausea and/or Vomiting (chest pains, shortness of breath, palpitations, dizziness) - Discharge Plan Prescriptions/Med Rec: Apixaban [Eliquis] 5 mg PO BID #60 tablet Diltiazem [Cardizem CD] 120 mg PO DAILY@1200 #30 cap.cd Hydrochlorothiazide 25 mg PO DAILY #30 tablet Metoprolol Tartrate [Lopressor] 25 mg PO TID #90 tablet Simvastatin [Zocor] 10 mg PO BEDTIME #30 tablet Home Medications: Home Meds Losartan [Cozaar] 25 mg PO DAILY 08/31/14 [History] Sertraline [Zoloft] 50 mg PO DAILY 08/31/14 [History] Apixaban [Eliquis] 5 mg PO BID #60 tablet 11/12/16 [Rx] Diltiazem [Cardizem CD] 120 mg PO DAILY@1200 #30 cap.cd 11/12/16 [Rx] Hydrochlorothiazide 25 mg PO DAILY #30 tablet 11/12/16 [Rx] Metoprolol Tartrate [Lopressor] 25 mg PO TID #90 tablet 11/12/16 [Rx] Simvastatin [Zocor] 10 mg PO BEDTIME #30 tablet 11/12/16 [Rx] Patient Handouts: Diabetes and Standards of Medical Care, Heart Failure, Easy- to-Read, How to Avoid Diabetes Problems, Apixaban oral tablets, Screening for Type 2 Diabetes, Atrial Fibrillation, [id number], Diabetes and Exercise Forms: ED Department Discharge Referrals: Cara Espinosa NP [Primary Care Provider] - - Discharge Summary/Plan Comment DC Time >30 min.: Yes (40 min) - General Info Date of Service: 11/12/16 Functional Status: Reports: pain controlled, tolerating diet, ambulating, urinating. Denies: new symptoms - Review of Systems General: Reports: No Symptoms HEENT: Reports: no symptoms Pulmonary: Reports: no symptoms Cardiovascular: Reports: No Symptoms Gastrointestinal: Reports: No symptoms Genitourinary: Reports: no symptoms Musculoskeletal: Reports: no symptoms Skin: Reports: no symptoms Neurological: Reports: No Symptoms Psychiatric: Reports: no symptoms - Patient Data Vitals - Most Recent: Last Vital Signs Temp 98.0 F 11/12/16 04:00 Pulse 98 11/12/16 08:24 Resp 17 11/12/16 04:00 BP 158/98 H 11/12/16 08:24 Pulse Ox 99 11/12/16 04:00 Weight - Most Recent: 151.137 kg I&O - Last 24 hours: Intake & Output 11/11/16 11/12/16 11/12/16 22:59 06:59 14:59 Intake Total 520 350 Output Total 800 650 Balance -280 -300 Lab Results - Last 24 hrs: Laboratory Results - last 24 hr 11/11/16 11/12/16 11/12/16 Range/Units 16:56 06:13 06:13 WBC 9.92 (3.98-10.04) K/mm3 RBC 4.68 (3.98-5.22) M/mm3 Hgb 13.6 (11.2-15.7) gm/L Hct 43.7 (34.1-44.9) % MCV 93.4 (79.4-94.8) fl MCH 29.1 (25.6-32.2) pg MCHC 31.1 L (32.2-35.5) g/dl RDW Std Deviation 45.1 (36.4-46.3) fL Plt Count 250 (182-369) K/mm3 MPV 11.4 (9.4-12.3) fl Neut % (Auto) 69.1 (34.0-71.1) % Lymph % (Auto) 21.9 (19.3-51.7) % [place] % (Auto) 6.9 (4.7-12.5) % Eos % (Auto) 1.7 (0.7-5.8) Baso % (Auto) 0.3 (0.1-1.2) % Neut # 6.86 H (1.56-6.13) K/mm3 Lymph # 2.17 (1.18-3.74) K/mm3 [place] # 0.68 H (0.24-0.36) K/mm3 Eos # 0.17 (0.04-0.36) K/mm3 Baso # 0.03 (0.01-0.08) K/mm3 Sodium 140 (136-145) mEq/L Potassium 4.2 (3.5-5.1) mEq/L Chloride 104 (98-107) mEq/L Carbon Dioxide 26 (21-32) mEq/L Anion Gap 14.2 (5-15) BUN 13 (7-18) mg/dL Creatinine 0.7 (0.55-1.02) mg/dL Est Cr Clr Drug Dosing 93.76 mL/min Estimated GFR (MDRD) > 60 (>60) mL/min BUN/Creatinine Ratio 18.6 H (14-18) Glucose 132 H (74-106) mg/dL POC Glucose 114 H (70-105) mg/dL Calcium 9.3 (8.5-10.1) mg/dL 11/12/16 Range/Units 06:47 WBC (3.98-10.04) K/mm3 RBC (3.98-5.22) M/mm3 Hgb (11.2-15.7) gm/L Hct (34.1-44.9) % MCV (79.4-94.8) fl MCH (25.6-32.2) pg MCHC (32.2-35.5) g/dl RDW Std Deviation (36.4-46.3) fL Plt Count (182-369) K/mm3 MPV (9.4-12.3) fl Neut % (Auto) (34.0-71.1) % Lymph % (Auto) (19.3-51.7) % [place] % (Auto) (4.7-12.5) % Eos % (Auto) (0.7-5.8) Baso % (Auto) (0.1-1.2) % Neut # (1.56-6.13) K/mm3 Lymph # (1.18-3.74) K/mm3 [place] # (0.24-0.36) K/mm3 Eos # (0.04-0.36) K/mm3 Baso # (0.01-0.08) K/mm3 Sodium (136-145) mEq/L Potassium (3.5-5.1) mEq/L Chloride (98-107) mEq/L Carbon Dioxide (21-32) mEq/L Anion Gap (5-15) BUN (7-18) mg/dL Creatinine (0.55-1.02) mg/dL Est Cr Clr Drug Dosing mL/min Estimated GFR (MDRD) (>60) mL/min BUN/Creatinine Ratio (14-18) Glucose (74-106) mg/dL POC Glucose 122 H (70-105) mg/dL Calcium (8.5-10.1) mg/dL Med Orders - Current: Current Medications Apixaban (Eliquis) 5 mg PO BID [facility] Last Admin: 11/12/16 08:24 Dose: 5 mg Diltiazem HCl (Cardizem Cd) 120 mg PO DAILY@1200 [facility] Last Admin: 11/11/16 11:08 Dose: Not Given Diltiazem HCl 100 mg/ Sodium (Chloride) 100 mls @ 10 mls/hr IV ASDIRECTED [facility] PRN Reason: 10 MG/HR Last Admin: 11/10/16 06:30 Dose: 10 mg/hr, 10 mls/hr Losartan Potassium (Cozaar) 25 mg PO DAILY [facility] Last Admin: 11/12/16 08:24 Dose: 25 mg Metoprolol Tartrate (Lopressor) 5 mg IVPUSH Q6H PRN PRN Reason: Tachycardia Last Admin: 11/11/16 23:39 Dose: 5 mg Metoprolol Tartrate (Lopressor) 25 mg PO TID [facility] Last Admin: 11/12/16 08:24 Dose: 25 mg Oxymetazoline HCl (Afrin Original 0.05% Nasal [place]) 0 ml RIANA BID PRN PRN Reason: Other Last Admin: 11/11/16 20:15 Dose: 1 spray Sertraline HCl (Zoloft) 50 mg PO DAILY [facility] Last Admin: 11/12/16 08:24 Dose: 50 mg Simvastatin (Zocor) 10 mg PO BEDTIME [facility] Last Admin: 11/11/16 20:14 Dose: 10 mg Discontinued Medications Diltiazem HCl (Diltiazem) 10 mg IVPUSH ONETIME ONE Stop: 11/10/16 06:14 Last Admin: 11/10/16 06:27 Dose: 10 mg Diltiazem HCl (Diltiazem) 10 mg IVPUSH ONETIME ONE Stop: 11/10/16 06:52 Last Admin: 11/10/16 07:17 Dose: 10 mg Diltiazem HCl (Cardizem) 30 mg PO Q8HR [facility] Last Admin: 11/10/16 13:00 Dose: 30 mg Diltiazem HCl (Cardizem) 60 mg PO Q8HR [facility] Last Admin: 11/11/16 06:32 Dose: 60 mg Diltiazem HCl (Cardizem) 30 mg PO ONETIME ONE Stop: 11/10/16 15:24 Last Admin: 11/10/16 15:39 Dose: 30 mg Furosemide (Lasix) 40 mg IVPUSH NOW ONE Stop: 11/10/16 06:14 Last Admin: 11/10/16 06:23 Dose: 40 mg Furosemide (Lasix) 20 mg IVPUSH NOW ONE Stop: 11/11/16 10:32 Last Admin: 11/11/16 10:46 Dose: 20 mg Sodium Chloride (Normal Saline) 1,000 mls @ 75 mls/hr IV ASDIRECTED [facility] Last Admin: 11/10/16 06:25 Dose: 75 mls/hr Magnesium Sulfate 2 gm/ Premix 50 mls @ 25 mls/hr IV ONETIME ONE Stop: 11/10/16 17:29 Last Admin: 11/10/16 16:20 Dose: 25 mls/hr Metoprolol Tartrate (Lopressor) 25 mg PO BID [facility] Last Admin: 11/11/16 20:14 Dose: 25 mg Metoprolol Tartrate (Lopressor) 25 mg PO ONETIME ONE Stop: 11/11/16 15:45 Last Admin: 11/11/16 16:08 Dose: 25 mg - Exam Quality Assessment: Reports: DVT prophylaxis General: Reports: alert, oriented, cooperative, no acute distress HEENT: Reports: Pupils equal, Pupils reactive, EOMI, Mucous membr. moist/pink Neck: Reports: supple Lungs: Reports: Clear to auscultation, Normal respiratory effort Cardiovascular: Reports: Regular Rate, Regular Rhythm Abdomen: Reports: bowel sounds present, soft, no tenderness (Female) Exam: Deferred Rectal (Female) Exam: Deferred Extremities: Reports: no edema Neurological: Reports: no new focal deficit Psy/Mental Status: Reports: alert, normal affect, normal mood *Q Meaningful Use (DIS) - VTE *Q VTE Criteria *Q: - Stroke *Q Stroke Criteria *Q: - AMI *Q AMI Criteria *Q: <Carla Jennings - Last Filed: 12/02/16 13:45> Discharge Summary - Hospital Course Free Text/Narrative:: See above for summary, agree; follow up as scheduled. - Patient Summary/Data Consults: Consultations 11/10/16 14:00 Consult to Dietary [Cons[facility] to [facility]] [CONS] Routine 11/11/16 08:00 Consult to Physical Therapy [PT Evaluation and Treatment] [CONS] Routine 11/11/16 09:24 Consult to Diabetic Nurse Specialist [CONS] Routine 11/11/16 10:00 Consult to Occupational Therapy [OT Evaluation and Treatment] [CONS] Routine - Patient Data Vitals - Most Recent: Last Vital Signs Temp 36.7 C 11/12/16 04:00 Pulse 98 11/12/16 08:24 Resp 16 11/12/16 08:00 BP 158/98 H 11/12/16 08:24 Pulse Ox 99 11/12/16 08:00 Med Orders - Current: Current Medications Discontinued Medications Apixaban (Eliquis) 5 mg PO BID [facility] Last Admin: 11/12/16 08:24 Dose: 5 mg Diltiazem HCl (Diltiazem) 10 mg IVPUSH ONETIME ONE Stop: 11/10/16 06:14 Last Admin: 11/10/16 06:27 Dose: 10 mg Diltiazem HCl (Diltiazem) 10 mg IVPUSH ONETIME ONE Stop: 11/10/16 06:52 Last Admin: 11/10/16 07:17 Dose: 10 mg Diltiazem HCl (Cardizem) 30 mg PO Q8HR [facility] Last Admin: 11/10/16 13:00 Dose: 30 mg Diltiazem HCl (Cardizem) 60 mg PO Q8HR [facility] Last Admin: 11/11/16 06:32 Dose: 60 mg Diltiazem HCl (Cardizem) 30 mg PO ONETIME ONE Stop: 11/10/16 15:24 Last Admin: 11/10/16 15:39 Dose: 30 mg Diltiazem HCl (Cardizem Cd) 120 mg PO DAILY@1200 [facility] Last Admin: 11/11/16 11:08 Dose: Not Given Furosemide (Lasix) 40 mg IVPUSH NOW ONE Stop: 11/10/16 06:14 Last Admin: 11/10/16 06:23 Dose: 40 mg Furosemide (Lasix) 20 mg IVPUSH NOW ONE Stop: 11/11/16 10:32 Last Admin: 11/11/16 10:46 Dose: 20 mg Diltiazem HCl 100 mg/ Sodium (Chloride) 100 mls @ 10 mls/hr IV ASDIRECTED [facility] PRN Reason: 10 MG/HR Last Admin: 11/10/16 06:30 Dose: 10 mg/hr, 10 mls/hr Sodium Chloride (Normal Saline) 1,000 mls @ 75 mls/hr IV ASDIRECTED [facility] Last Admin: 11/10/16 06:25 Dose: 75 mls/hr Magnesium Sulfate 2 gm/ Premix 50 mls @ 25 mls/hr IV ONETIME ONE Stop: 11/10/16 17:29 Last Admin: 11/10/16 16:20 Dose: 25 mls/hr Losartan Potassium (Cozaar) 25 mg PO DAILY [facility] Last Admin: 11/12/16 08:24 Dose: 25 mg Metoprolol Tartrate (Lopressor) 5 mg IVPUSH Q6H PRN PRN Reason: Tachycardia Last Admin: 11/11/16 23:39 Dose: 5 mg Metoprolol Tartrate (Lopressor) 25 mg PO BID [facility] Last Admin: 11/11/16 20:14 Dose: 25 mg Metoprolol Tartrate (Lopressor) 25 mg PO ONETIME ONE Stop: 11/11/16 15:45 Last Admin: 11/11/16 16:08 Dose: 25 mg Metoprolol Tartrate (Lopressor) 25 mg PO TID [facility] Last Admin: 11/12/16 08:24 Dose: 25 mg Oxymetazoline HCl (Afrin Original 0.05% Nasal [place]) 0 ml RIANA BID PRN PRN Reason: Other Last Admin: 11/11/16 20:15 Dose: 1 spray Sertraline HCl (Zoloft) 50 mg PO DAILY [facility] Last Admin: 11/12/16 08:24 Dose: 50 mg Simvastatin (Zocor) 10 mg PO BEDTIME [facility] Last Admin: 11/11/16 20:14 Dose: 10 mg *Q Meaningful Use (DIS) - VTE *Q VTE Criteria *Q: - Stroke *Q Stroke Criteria *Q: - AMI *Q AMI Criteria *Q:
[2016-11-12] MEDS ORDERED: Metoprolol Tartrate 25 MG Tab PO SCH (09:00)
== END 2016-11-12 10:04 | disposition home or self-care (01) | DRG 309 ==
LOC: JD.ED 05:49 → JD.ICU 08:01
PROVIDERS: ADMIT Internal Medicine Cardiovascular Disease; ATTEND Internal Medicine Cardiovascular Disease
DX: I48.91 Unspecified atrial fibrillation (principal); Z68.43 Body mass index [BMI] 50.0-59.9, adult; R07.9 Chest pain, unspecified; I11.0 Hypertensive heart disease with heart failure; I50.9 Heart failure, unspecified; F32.9 Major depressive disorder, single episode, unspecified; F41.9 Anxiety disorder, unspecified; E66.01 Morbid (severe) obesity due to excess calories; Z87.891 Personal history of nicotine dependence; Z88.1 Allergy status to other antibiotic agents; Z79.899 Other long term (current) drug therapy
CPT/HCPCS: 36415; 71010; 71010-26; 80048; 80053; 80061; 81001; 82553; 82962; 83036; 83735; 83880; 84443; 84484; 85025; 85610; 86140; 86738; 87804; 93005; 93306; 96361; 96365; 96366; 96375; 96376; 97161-GP; 97165-GO; 99239; 99285; 99285-25; A9270-GY; J1940; J3475; J3490; J7030; J7040

== ENCOUNTER 2017-10-08 12:17 | Emergency (ER) | payer OTHER ==
[2017-10-08 12:22] VITALS: BP 152/107
[2017-10-08] MEDS ORDERED: HYDROmorphone 1 MG/ML Syringe IVPUSH ONE (12:23)
[2017-10-08] MEDS ORDERED: Sodium Chloride 0.9% 10 ML Syringe FLUSH PRN (12:24)
--- NOTE | 2017-10-08 12:26 | EDM.PDOC ---
ED HPI GENERAL MEDICAL PROBLEM - General Chief Complaint: Lower Extremity Injury/Pain Stated Complaint: [facility] Time Seen by Provider: 10/08/17 12:17 Source of Information: Reports: Patient History Limitations: Reports: No Limitations - History of Present Illness INITIAL COMMENTS - FREE TEXT/NARRATIVE: 56-year-old female presents from the [facility] ambulance service for evaluation and treatment of injuries sustained in a fall. Injury occurred prior to arrival in the ER. 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 Reportedly she slipped on ice. Unsure exactly how she fell. She is primarily complaining of pain to the right ankle. Unsure if she hit her head. She also reports neck pain which she attributes to whiplash. She denies any headaches, vision changes , nausea, vomiting, chest pain, abdominal pain, shortness of breath or pain in the hips. As stated she is primarily complaining of pain to the right ankle. She is also she had swelling. Unable to bear weight due to pain. No treatments prior to arrival ER. patient is on eliquis for A. fib. Onset: Today Location: Reports: Lower Extremity, Right Right Ankle Pain Score (Numeric/FACES): 10 - Related Data Allergies Allergy/AdvReac Type Severity Reaction Status Date / Time erythromycin base Allergy Swelling Verified 11/10/16 11:36 Home Meds: Home Meds Sertraline [Zoloft] 50 mg PO DAILY 08/31/14 [History] Apixaban [Eliquis] 5 mg PO BID #60 tablet 11/12/16 [Rx] Diltiazem [Cardizem CD] 120 mg PO DAILY@1200 #30 cap.cd 11/12/16 [Rx] Simvastatin [Zocor] 10 mg PO BEDTIME #30 tablet 11/12/16 [Rx] Acetaminophen/oxyCODONE [Percocet 325-5 MG] 1 tab PO Q4HR PRN #20 tab 10/08/17 [ Rx] Losartan/Hydrochlorothiazide [Losartan-HCTZ 50-12.5 MG] 1 tab PO DAILY 10/08/17 [History] Metoprolol Tartrate [Lopressor] 75 mg PO DAILY 10/08/17 [History] Ondansetron [Zofran ODT] 4 mg PO Q6H PRN #20 tab.dis 10/08/17 [Rx] Past Medical History Cardiovascular History: Reports: Hypertension Psychiatric History: Reports: Anxiety, Depression Endocrine/Metabolic History: Reports: Obesity/BMI 30+ - Past Surgical History HEENT Surgical History: Reports: Tonsillectomy Social & Family History - Family History Family Medical History: Noncontributory - Tobacco Use Smoking Status *Q: Never Smoker (quit 24 years ago.) Years of Tobacco use: 5 Packs/Tins Daily: 0.5 Used Tobacco, but Quit: Yes Month Tobacco Last Used: quit 24yrs ago - Caffeine Use Caffeine Use: Reports: Coffee - Alcohol Use Days Per Week of Alcohol Use: 2 Number of Drinks Per Day: 2 Total Drinks Per Week: 4 - Recreational Drug Use Recreational Drug Use: No - Living Situation & Occupation Living situation: Reports: Occupation: Employed Review of Systems - Review of Systems Review Of Systems: See Below Eyes: Denies: Vision Change Respiratory: Denies: Shortness of Breath Cardiovascular: Denies: Chest Pain GI/Abdominal: Denies: Abdominal Pain, Nausea, Vomiting Musculoskeletal: Reports: Neck Pain, Joint Pain (right ankle), Joint Swelling ( right ankle) Skin: Denies: Wound Neurological: Denies: Headache, Syncope ED EXAM, GENERAL - Physical Exam Exam: See Below Exam Limited By: No Limitations General Appearance: Alert, WD/WN, Moderate Distress, Obese Eye Exam: Bilateral Eye: Normal Inspection, PERRL Ears: Normal External Exam Nose: Normal Inspection Throat/Mouth: Normal Inspection, Normal Lips, Normal Voice, No Airway Compromise Neck: Normal Inspection, Supple, Non-Tender, Full Range of Motion Respiratory/Chest: No Respiratory Distress, Lungs Clear, Normal Breath Sounds Cardiovascular: Normal Peripheral Pulses, Regular Rate, Rhythm, No Murmur Peripheral Pulses: 1+: Dorsalis Pedis (R), 2+: Posterior Tibial (R) Extremities: Normal Capillary Refill, Limited Range of Motion (right ankle, ROM testing deferred due to pain), Other (severe tenderness to palpation of the right ankle) Neurological: Alert, Oriented, Normal Cognition Psychiatric: Normal Affect, Normal Mood Skin Exam: Warm, Dry, Normal Color. No: Ecchymosis, Increased Warmth Course - Vital Signs Last Recorded V/S: Last Vital Signs Temp 37.1 C 10/08/17 12:18 Pulse 90 10/08/17 12:38 Resp 22 H 10/08/17 12:38 BP 152/107 H 10/08/17 12:38 Pulse Ox 100 10/08/17 12:38 - Orders/Labs/Meds Labs: Laboratory Tests 10/08/17 10/08/17 10/08/17 Range/Units 12:30 12:30 12:30 WBC 7.20 (3.98-10.04) K/mm3 RBC 4.80 (3.98-5.22) M/mm3 Hgb 13.7 (11.2-15.7) gm/L Hct 43.8 (34.1-44.9) % MCV 91.3 (79.4-94.8) fl MCH 28.5 (25.6-32.2) pg MCHC 31.3 L (32.2-35.5) g/dl RDW Std Deviation 44.3 (36.4-46.3) fL Plt Count 236 (182-369) K/mm3 MPV 11.0 (9.4-12.3) fl Neut % (Auto) 69.5 (34.0-71.1) % Lymph % (Auto) 23.1 (19.3-51.7) % [place] % (Auto) 6.4 (4.7-12.5) % Eos % (Auto) 0.6 L (0.7-5.8) Baso % (Auto) 0.3 (0.1-1.2) % Neut # (Auto) 5.01 (1.56-6.13) K/mm3 Lymph # (Auto) 1.66 (1.18-3.74) K/mm3 [place] # (Auto) 0.46 H (0.24-0.36) K/mm3 Eos # (Auto) 0.04 (0.04-0.36) K/mm3 Baso # (Auto) 0.02 (0.01-0.08) K/mm3 PT 10.5 (8.0-13.0) SECONDS INR 0.97 Sodium 141 (136-145) mEq/L Potassium 3.8 (3.5-5.1) mEq/L Chloride 103 (98-107) mEq/L Carbon Dioxide 27 (21-32) mEq/L Anion Gap 14.8 (5-15) BUN 12 (7-18) mg/dL Creatinine 0.7 (0.55-1.02) mg/dL Est Cr Clr Drug Dosing 92.68 mL/min Estimated GFR (MDRD) > 60 (>60) mL/min BUN/Creatinine Ratio 17.1 (14-18) Glucose 134 H (74-106) mg/dL Calcium 9.9 (8.5-10.1) mg/dL Total Bilirubin 0.6 (0.2-1.0) mg/dL AST 23 (15-37) U/L ALT 36 (14-59) U/L Alkaline Phosphatase 92 (46-116) U/L Total Protein 7.9 (6.4-8.2) g/dl Albumin 4.0 (3.4-5.0) g/dl Globulin 3.9 gm/dL Albumin/Globulin Ratio 1.0 (1-2) Meds: Medications Discontinued Medications Generic Name Dose Route Start Last Admin Trade Name Freq PRN Reason Stop Dose Admin Hydromorphone HCl 1 mg 10/08/17 12:23 10/08/17 12:38 Dilaudid IVPUSH 10/08/17 12:24 1 mg ONETIME ONE Administration Metoclopramide HCl 7.5 mg 10/08/17 15:18 10/08/17 15:24 Reglan IVPUSH 10/08/17 15:19 7.5 mg ONETIME ONE Administration Ondansetron HCl 4 mg 10/08/17 13:06 10/08/17 13:12 Zofran IVPUSH 10/08/17 13:07 4 mg ONETIME ONE Administration Ondansetron HCl 4 mg 10/08/17 13:33 10/08/17 13:41 Zofran IVPUSH 10/08/17 13:34 4 mg ONETIME ONE Administration Sodium Chloride 10 ml 10/08/17 12:24 10/08/17 12:30 Saline Flush FLUSH 10 ml ASDIRECTED PRN Administration Keep Vein Open - Radiology Interpretation Free Text/Narrative:: xray of the right ankle shows a bimalleolar fracture of the right ankle involving the lateral and posterior malleolus xray of the lumbar spins shows no acute fractures or dislocations CT of the head with out contrast pervrad: no acute intracranial abnormality. mild occipital scalp swelling. CT of the cervical spine without contrast contrast impression per vrad : No fracture or subluxation of the cervical spine. Cervical spondylosis, most pronounced at C5-C6 - Re-Assessments/Exams Free Text/Narrative Re-Assessment/Exam: 10/08/17 15:[address] Chacon, orthopedics monitoring analyst. He'll see in clinic tomorrow at 8:15 AM. Decision for surgery will be made at that time. In the meantime I'll have her ice and elevate. She'll be given medication for pain control. unfortunately, due to her size we do not crutches that will fit her here in the ER. I've been in contact with [employer]. Attempting to get her a scooter. Due to this being a Workmen's Comp. issue she will have to pay out of pocket for the scooter. The other option is they do have crutches for her size. She can make this decision when she gets to [employer] [facility] [employer]. The patient was splinted in a posterior slab splint with stirrup. She tolerated this well. No complications. Discharge instructions as documented. Departure - Departure Time of Disposition: 15:47 Disposition: Home, Self-Care 01 Condition: Fair Clinical Impression: Ankle fracture, bimalleolar, closed Qualifiers: Encounter type: initial encounter Laterality: right Qualified Code(s): S82.841A - Displaced bimalleolar fracture of right lower leg, initial encounter for closed fracture - Discharge Information Prescriptions: Acetaminophen/oxyCODONE [Percocet 325-5 MG] 1 tab PO Q4HR PRN #20 tab PRN Reason: Pain Ondansetron [Zofran ODT] 4 mg PO Q6H PRN #20 tab.dis PRN Reason: Nausea Instructions: Ankle Fracture Referrals: Cecil Allan MD [Physician] - Forms: ED Department Discharge Additional Instructions: Off the ankle at all times. Go to [employer] [facility] [employer] [facility] [employer]. You may either get a scooter, Discussed this with them further, If not you will require crutches. Follow up with Dr. Chacon tomorrow, October 09 at 8:15 a.m. [facility] Check in at 8 AM. Ice the area, even over the splint. Elevate the ankle as much as possible. Cover the splint when exposed to water. Keep the splint on on all times. Cover with a bag, Stran wrap, etc. You were given medicationthe ER that can affect your ability to drive and operate machinery. Do not drive or operate machinery within 12 hours of taking prescription narcotic pain medication. Percocet 1-2 tabs every 4-6 hours as needed for severe pain. Do not drive or operate machinery within 12 hours of taking Percocet. Percocet can be habit- forming, I recommend you take as few of these as needed to control your pain. Zofran 1 tab sublingual every 6 hours as needed for nausea. Please return to ER if your symptoms change or worsen.
[2017-10-08] MEDS ORDERED: Ondansetron 4 MG/2 ML SDV IVPUSH ONE ×2 (13:06→13:33)
[2017-10-08] MEDS ORDERED: Metoclopramide 10 MG/2 ML SDV IVPUSH ONE (15:18)
--- NOTE | 2017-10-09 10:07 | CT ---
CT cervical spine Technique: Multiple axial sections were obtained from above C1 inferiorly to the top of T2. Reconstructed sagittal and coronal images were reviewed. Comparison: Prior CT cervical spine study of 08/09/13. Findings: Moderate disc space narrowing is noted at C4-C5 with moderate to severe disc space narrowing noted at C5-C6. Posterior osteophytes are seen primarily at C5-C6. Mild degenerative sclerosis is seen within the endplates at C5-C6. Slight anterior osteophytes are noted at C3-C4 through C6-C7. Degenerative spurring is noted on the right side at C5-C6 within the uncovertebral joint. Moderate to severe right sided neural foraminal stenosis is noted at C5-C6. No fracture or abnormal subluxation is seen. Impression: 1. Degenerative change as noted above. Nothing acute is appreciated on CT study of the cervical spine. Diagnostic code #3 I agree with preliminary report issued by [facility] ([facility] report finalized on 10/08/17, 2:22 PM Central Time)
--- NOTE | 2017-10-09 10:07 | CR ---
Right ankle: Four views of the right ankle were obtained. Distal tibial fracture is identified. Displaced fracture is noted within the posterior malleolus with mild anterior shifting of the tibia in relation to the talus. Mildly displaced lateral malleolus fracture is noted with asymmetric ankle mortise. Large plantar spur is seen with small spur noted at the attachment of the Achilles tendon to the calcaneus. Soft tissue swelling is identified. Impression: 1. Fractures and partial dislocation as noted above. 2. Incidental calcaneal spurs and soft tissue swelling. Diagnostic code #3
--- NOTE | 2017-10-09 10:07 | CR ---
Lumbar spine: AP, lateral and coned down lateral views centered to the lumbosacral junction were obtained. Comparison: No prior lumbar spine imaging. Mild disc space narrowing is noted at L1-L2, L2-L3 and L3-L4. L4-L5 disc and L5-S1 disc is within normal limits. Scattered endplate osteophytes are seen. Pedicles as well as visualized transverse and spinous processes are intact. No subluxation or fracture is seen. Incidental surgical clips are noted from prior cholecystectomy. Sacroiliac joints are within normal limits. Impression: 1. Mild degenerative change as noted above. Nothing acute is appreciated on three-view lumbar spine exam. Diagnostic code #2
--- NOTE | 2017-10-09 10:07 | CT ---
Head CT Technique: Multiple axial sections through the brain were obtained. Intravenous contrast was not utilized. Comparison: Prior head CT exam of 08/09/13. Findings: Ventricles along with basal cisterns and sulci over the convexities are within normal limits for the patient's age. No abnormal parenchymal densities are seen. No evidence of intracranial hemorrhage. No midline shift or mass effect is seen. Bone window settings were reviewed which show no acute calvarial abnormality. Visualized sinuses are clear. Incidental note of soft tissue swelling within the left posterior scalp. Impression: 1. Nothing acute is seen on noncontrast head CT study. No significant change is seen from previous study. Diagnostic code #1 I agree with preliminary report issued by [facility] ([facility] report finalized on 10/08/17, 2:11 PM Central Time)
== END 2017-10-08 16:30 | disposition home or self-care (01) ==
LOC: JD.ED 12:17
DX: S82.841A Displaced bimalleolar fracture of right lower leg, initial encounter for closed fracture (principal); I10 Essential (primary) hypertension; I48.91 Unspecified atrial fibrillation; F32.9 Major depressive disorder, single episode, unspecified; Z87.891 Personal history of nicotine dependence; Z79.899 Other long term (current) drug therapy; Z88.1 Allergy status to other antibiotic agents; W00.0XXA Fall on same level due to ice and snow, initial encounter
CPT/HCPCS: 29515; 36415; 70450; 70450-26; 72100; 72100-26; 72125; 72125-26; 73610-26-RT; 73610-RT; 80053; 85025; 85610; 96374; 96375; 99284-25; J1170; J2405; J2765; J7050

== ENCOUNTER → 2017-10-10 | Day surgery (SDC) | payer OTHER ==
--- NOTE | 2017-10-09 11:03 | HP ---
DATE OF ADMISSION: 10/08/2017 HISTORY OF PRESENT ILLNESS: This is the first orthopedic outpatient admission for surgery for this 56-year- old female who suffered an acute injury to her right ankle secondary to a fall on the ice while working for the [employer]. The patient initially was seen through the emergency room, was placed in a short-leg splint, referred to the orthopedic clinic, and the patient is in today for evaluation of the fracture on x-rays along with treatment of the splint. The patient, after evaluation of the x-rays, found the fractured lateral malleolus to be shifted laterally with a shift in the talus and separation of the deltoid ligament and posterior malleolus displacement. After evaluation, the patient is now being scheduled for an outpatient surgical repair of the fracture, possible ligamental repair. The patient was explained the procedure and the results of the complications of the surgery, if they were to occur. She understands that, and we will go ahead and schedule for an outpatient surgical open reduction and internal fixation of the right ankle fracture. ALLERGIES: Erythromycin. PAST MEDICAL HISTORY: The patient has been a relatively healthy, stable patient. She has had a history of high blood pressure, atrial fibrillation, and depression. CURRENT MEDICATIONS: Include: 1. Cozaar. 2. Zoloft. 3. Eliquis. 4. Cardizem. 5. Hydrochlorothiazide. 6. Metoprolol. 7. Simvastatin. PAST SURGICAL HISTORY: Positive. She has had previous gallbladder and . She notes no anesthesia complications or problems. She has a negative bleeding history, negative blood clot history. SOCIAL HISTORY: She is a nonsmoker. Alcohol is very rare. PHYSICAL EXAMINATION: GENERAL: Examination today reveals a well-developed, well-nourished, 56-year- old female in moderate to severe distress. HEAD, EYES, EARS, NOSE, AND THROAT: Normocephalic. NECK: Supple. CHEST: Clear. CARDIOVASCULAR: Regular rate. ABDOMEN: Soft. GENITOURINARY: Intact. EXTREMITIES: Examination of the right ankle reveals positive severe pain on direct pressure and palpation over the lateral malleolus and medial malleolus, deltoid ligament region, and posterior malleolus. Moderate swelling is noted. No blister formation is seen. RADIOGRAPHIC STUDIES: X-ray: Radiology was reviewed which shows a distal fibular fracture displaced laterally along with a talar shift and also posterior malleolus fracture displaced and separation of deltoid ligament. PLAN: Plan will be for the patient to undergo an open reduction and internal fixation of the right ankle fracture/ligament injury. Procedure was outlined to her. She understands the risks and complications involved with that and has consented to surgery. MAX /[id number]
[~2017-10-10] MED LIST: Acetaminophen/HYDROcodone 325-5 MG Tab PO PRN; Bupivacaine 0.5% 30 ML SDV ONE; Cyclobenzaprine 10 MG Tab PO PRN; Dexamethasone 4 MG/ML SDV ONE; HYDROmorphone 0.5 MG/0.5 ML Syringe IVPUSH PRN; HYDROmorphone 1 MG/ML Syringe ONE; Ketamine 500 mg/10 ML MDV ONE; Ketorolac 30 MG/ML SDV IVPUSH PRN; Ketorolac 30 MG/ML SDV ONE; Lidocaine 1% 4 ML ONE; Meperidine PF 50 MG/ML Syringe IVPUSH PRN; Midazolam 1 MG/ML 2 ML SDV ONE; Morphine 15 MG Tab.ER PO SCH; Ondansetron 4 MG/2 ML SDV IVPUSH PRN; Ondansetron 4 MG/2 ML SDV ONE; Propofol 200 MG/20 ML SDV ONE; Rocuronium 50 MG/5 ML Vial ONE; Scopolamine 1 MG Transdermal Patch TRDERM ONE; ceFAZolin 1 GM Vial ONE; diphenhydrAMINE 50 MG/ML SDV IVPUSH PRN; fentaNYL 100 MCG/2 ML SDV IVPUSH PRN; fentaNYL 250 MCG/5 ML SDV ONE
--- NOTE | 2017-10-10 07:38 | PCM.PREANE ---
Preanesthetic Assessment - Anesthesia/Transfusion/Family Hx Anesthesia History: Prior Anesthesia Without Reaction Family History of Anesthesia Reaction: No Transfusion History: No Prior Transfusion(s) - Review of Systems General: No Symptoms Pulmonary: Other (ORIANA with CPAP) Cardiovascular: Other (HTN, Afib) Gastrointestinal: Nausea Neurological: No Symptoms Other: Reports: Easy Bleeding, Easy Bruising, Depression - Physical Assessment NPO Status Date: 10/09/17 NPO Status Time: 17:00 O2 Sat by Pulse Oximetry: 95 Respiratory Rate: 13 Vital Signs: Last Vital Signs Temp 36.7 C 10/10/17 07:12 Pulse 91 10/10/17 07:12 Resp 13 10/10/17 07:12 BP 158/88 H 10/10/17 07:12 Pulse Ox 95 10/10/17 07:12 Height: 1.73 m Weight: 149.232 kg ASA Class: 2E Mental Status: Alert & Oriented x3 Airway Class: Mallampati = 1 Dentition: Reports: Normal Dentition Thyro-Mental Finger Breadths: 3 Mouth Opening Finger Breadths: 3 ROM/Head Extension: Full Lungs: Clear to Auscultation, Normal Respiratory Effort Cardiovascular: Regular Rate, Irregular Rhythm (afib) - Allergies Allergies/Adverse Reactions: Allergies Allergy/AdvReac Type Severity Reaction Status Date / Time erythromycin base Allergy Swelling Verified 10/10/17 07:08 - Blood Blood Available: No Product(s) Available: None - Anesthesia Plan Pre-Op Medication Ordered: None Beta Madelyn: Metoprolol Med Last Dose Date: 10/09/17 Med Last Dose Time: 17:00 - Acknowledgements Anesthesia Type Planned: General Anesthesia Pt an Appropriate Candidate for the Planned Anesthesia: Yes Alternatives and Risks of Anesthesia Discussed w Pt/Guardian: Yes Pt/Guardian Understands and Agrees with Anesthesia Plan: Yes PreAnesthesia Questionnaire HEENT History: Reports: Impaired Vision Cardiovascular History: Reports: Afib, High Cholesterol, Hypertension Respiratory History: Reports: Sleep Apnea 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: Psychiatric History: Reports: Anxiety, Depression Endocrine/Metabolic History: Reports: Obesity/BMI 30+ - Past Surgical History HEENT Surgical History: Reports: Tonsillectomy GI Surgical History: Reports: Cholecystectomy Female Surgical History: Reports: Section - SUBSTANCE USE Smoking Status *Q: Former Smoker Tobacco Use Within Last Twelve Months: Cigarettes Days Per Week of Alcohol Use: 2 Number of Drinks Per Day: 2 Total Drinks Per Week: 4 Recreational Drug Use History: No - HOME MEDS Home Medications: Home Meds Sertraline [Zoloft] 50 mg PO DAILY 08/31/14 [History] Apixaban [Eliquis] 5 mg PO BID #60 tablet 11/12/16 [Rx] Simvastatin [Zocor] 10 mg PO BEDTIME #30 tablet 11/12/16 [Rx] Acetaminophen/oxyCODONE [Percocet 325-5 MG] 1 tab PO Q4HR PRN #20 tab 10/08/17 [ Rx] Losartan/Hydrochlorothiazide [Losartan-HCTZ 50-12.5 MG] 1 tab PO DAILY 10/08/17 [History] Metoprolol Tartrate [Lopressor] 100 mg PO DAILY 10/08/17 [History] Ondansetron [Zofran ODT] 4 mg PO Q6H PRN #20 tab.dis 10/08/17 [Rx] Diltiazem [Cardizem CD] 120 mg PO DAILY 10/10/17 [History]
[2017-10-10] MEDS: Iodine/Sodium Iodide 2% Tincture 30 ML Bottle ONE ×2 (08:57→08:59)
--- NOTE | 2017-10-10 10:45 | PCM.POSTAN ---
POST ANESTHESIA ASSESSMENT - MENTAL STATUS Mental Status: Alert, Oriented - VITAL SIGNS Pulse Rate: 81 SaO2: 96 Resp Rate: 13 Blood Pressure: 159/80 Temperature: 36.1 C - RESPIRATORY Respiratory Status: Respiratory Rate WNL, Airway Patent, O2 Saturation Stable, Supplemental Oxygen - CARDIOVASCULAR CV Status: Pulse Rate WNL, Blood Pressure Stable - GASTROINTESTINAL GI Status: No Symptoms - PAIN Pain Score: 0 - POST OP HYDRATION Hydration Status: Adequate & Stable
[2017-10-10 16:37] VITALS: BP 163/75
--- NOTE | 2017-10-10 17:50 | PCM48HPAN ---
Post Anesthesia Note - EVALUATION WITHIN 48HRS OF ANESTHETIC Vital Signs in Normal Range: Yes Patient Participated in Evaluation: Yes Respiratory Function Stable: Yes Airway Patent: Yes Cardiovascular Function Stable: Yes Hydration Status Stable: Yes Pain Control Satisfactory: Yes Nausea and Vomiting Control Satisfactory: Yes Mental Status Recovered: Yes
--- NOTE | 2017-10-11 08:58 | CR ---
Right ankle: Five fluoroscopic spot views were obtained of the right ankle utilizing C-arm device. Comparison: Previous right ankle study of 10/08/17. Study shows reduction and fixation of previous fractures. Ankle mortise appears symmetric. Final film shows plate and screws within the lateral malleolus fracture. Fluoroscopy time not given at time of dictation. Impression: 1. Reduction and fixation of prior lateral malleolus fracture. Diagnostic code #2
--- NOTE | 2017-10-12 08:09 | OR ---
DATE OF OPERATION: 10/10/2017 SURGEON: Cecil Allan MD PREOPERATIVE DIAGNOSIS: 1. Displaced fracture, lateral malleolus, right ankle. 2. Displaced fracture, posterior malleolus, with crush injury, distal tibia. 3. Deltoid ligament tear, partial. ANESTHESIA: General. OPERATION PERFORMED: 1. Open reduction and internal fixation of lateral malleolus fracture with plate fixation. 2. Closed reduction of posterior malleolus fracture and crush injury site. 3. Application of a short-leg cast to the right leg, bivalved. DESCRIPTION OF PROCEDURE: The patient was taken to the operating room. In supine position, placed under general anesthesia. The right leg was then prepped and draped by standard fashion. The operation began with a lateral incision being placed over the distal fibula with a hockey stick extending anteriorly. Once the incision was in place, the operation then proceeded with exposure of the distal fibula and also the oblique fracture that was present. The fracture was shifted laterally. The oblique fracture was then opened. It was cleaned of soft tissues from within the fracture site itself. Once the debridement was completed, the operation then proceeded with fluoroscopy being used to evaluate the fracture, then also the posterior malleolus fracture. This was kind of a crush hinge-type injury to the posterior malleolus. A small Dukes elevator was used to slip behind the tibia on the posterior aspect of the fibula by putting pressure on the distal tibia. The fracture was reduced approximately 50% until it was stable against the crushed bone that was present. Once that was accomplished, the operation proceeded with plate fixation of the distal right fibula with a locking-type plate. Once the plate was fixated, hardcopy x-rays were taken of the ankle at AP and in also lateral and oblique views. The tibial fracture, posterior malleolus, still had some separation. It had dropped down to recreate the posterior curve of the ankle. The operation proceeded with fluoroscopy. Anterior and posterior stresses were used on the ankle. No movement was noted to the talus, and no instability noted with direct pressure posteriorly. The operation then proceeded with irrigation of the wound area. Deep tissues were closed with #1 Vicryl, subcutaneous tissue with 2-0 Vicryl, and skin with skin faviola. The patient was placed in a short-leg cast that was bivalved. She tolerated the procedure well and left the operating room in stable condition to room for recovery. POSTOPERATIVE DIAGNOSIS: ESTIMATED BLOOD LOSS: MMODAL /[id number]
== END | disposition home or self-care (01) ==
LOC: JD.ED 06:55 → JD.SDS 07:43
PROVIDERS: ATTEND Specialist
DX: S82.841A Displaced bimalleolar fracture of right lower leg, initial encounter for closed fracture (principal); I10 Essential (primary) hypertension; E78.00 Pure hypercholesterolemia, unspecified; I48.91 Unspecified atrial fibrillation; G47.30 Sleep apnea, unspecified; F41.9 Anxiety disorder, unspecified; F32.9 Major depressive disorder, single episode, unspecified; E66.9 Obesity, unspecified; W00.0XXA Fall on same level due to ice and snow, initial encounter; Y99.0 Civilian activity done for income or pay; Z88.1 Allergy status to other antibiotic agents; Z90.89 Acquired absence of other organs; Z79.899 Other long term (current) drug therapy; Z90.49 Acquired absence of other specified parts of digestive tract; Z87.891 Personal history of nicotine dependence; Z68.30 Body mass index [BMI] 30.0-30.9, adult
CPT/HCPCS: 27768; 27792; 76000; 99281; A9270; J0690; J1100; J1170; J1885; J2250; J2405; J3010; 01480; C1713; C1776; J2001; J2704

== ENCOUNTER 2018-01-28 09:25 | Day surgery (SDC) | payer BC, OTHER ==
[~2018-01-28 09:25] MED LIST changes: -Acetaminophen/HYDROcodone 325-5 MG Tab PO PRN; -Bupivacaine 0.5% 30 ML SDV ONE; +Cefuroxime 10 MG/ML SYRINGE EYELF SCH; -Cyclobenzaprine 10 MG Tab PO PRN; -Dexamethasone 4 MG/ML SDV ONE; -HYDROmorphone 0.5 MG/0.5 ML Syringe IVPUSH PRN; -HYDROmorphone 1 MG/ML Syringe ONE; -Ketamine 500 mg/10 ML MDV ONE; -Ketorolac 30 MG/ML SDV IVPUSH PRN; -Ketorolac 30 MG/ML SDV ONE; -Lidocaine 1% 4 ML ONE; +Lidocaine 1% PF 2 ML SDV INJECT SCH; -Meperidine PF 50 MG/ML Syringe IVPUSH PRN; -Midazolam 1 MG/ML 2 ML SDV ONE; -Morphine 15 MG Tab.ER PO SCH; -Ondansetron 4 MG/2 ML SDV IVPUSH PRN; -Ondansetron 4 MG/2 ML SDV ONE; +Pilocarpine 4% Ophth Soln 15 ML Bot EYELF SCH; -Propofol 200 MG/20 ML SDV ONE; -Rocuronium 50 MG/5 ML Vial ONE; -Scopolamine 1 MG Transdermal Patch TRDERM ONE; -ceFAZolin 1 GM Vial ONE; -diphenhydrAMINE 50 MG/ML SDV IVPUSH PRN; -fentaNYL 100 MCG/2 ML SDV IVPUSH PRN; -fentaNYL 250 MCG/5 ML SDV ONE
[2018-01-28] MEDS: Polymyxin B/Trimethoprim 10 ML Bottle EYELF SCH ×3 (09:46→11:24)
[2018-01-28] MEDS: Brimonidine 0.2% Ophth Soln 5 ML Bottle EYELF SCH ×3 (09:51→11:24)
[2018-01-28] MEDS: Phenylephrine 2.5% Ophth Soln 2 ML Bot EYELF SCH ×5 (09:56→11:01)
[2018-01-28] MEDS: Tropicamide 1% Ophth Soln 3 ML Bottle EYELF SCH ×4 (10:01→10:47)
--- NOTE | 2018-01-28 10:04 | PCM.PREANE ---
Preanesthetic Assessment - Anesthesia/Transfusion/Family Hx Anesthesia History: Prior Anesthesia Without Reaction Family History of Anesthesia Reaction: No Transfusion History: No Prior Transfusion(s) - Review of Systems General: No Symptoms Pulmonary: No Symptoms Cardiovascular: No Symptoms Gastrointestinal: No Symptoms Neurological: Numbness (ender at time) Other: Reports: Easy Bleeding, Easy Bruising - Physical Assessment NPO Status Date: 01/27/18 NPO Status Time: 19:30 Pulse: 88 O2 Sat by Pulse Oximetry: 96 Respiratory Rate: 16 Blood Pressure: 158/76 Temperature: 36.3 C Vital Signs: Last Vital Signs Temp 36.3 C 01/28/18 09:40 Pulse 88 01/28/18 09:40 Resp 16 01/28/18 09:40 BP 158/74 H 01/28/18 09:40 Pulse Ox 96 01/28/18 09:40 Height: 1.73 m Weight: 147.418 kg ASA Class: 2 Mental Status: Alert & Oriented x3 Dentition: Reports: Normal Dentition Thyro-Mental Finger Breadths: 2 Mouth Opening Finger Breadths: 2 ROM/Head Extension: Full Lungs: Clear to Auscultation, Normal Respiratory Effort Cardiovascular: Regular Rhythm, Irregular Rhythm - Allergies Allergies/Adverse Reactions: Allergies Allergy/AdvReac Type Severity Reaction Status Date / Time erythromycin base Allergy Swelling Verified 01/27/18 15:08 - Blood Blood Available: No Product(s) Available: None - Anesthesia Plan Pre-Op Medication Ordered: Beta Madelyn Beta Madelyn: Metoprolol Med Last Dose Date: 01/28/18 Med Last Dose Time: 08:00 - Acknowledgements Anesthesia Type Planned: MAC Pt an Appropriate Candidate for the Planned Anesthesia: Yes Alternatives and Risks of Anesthesia Discussed w Pt/Guardian: Yes Pt/Guardian Understands and Agrees with Anesthesia Plan: Yes PreAnesthesia Questionnaire HEENT History: Reports: Impaired Vision Cardiovascular History: Reports: Afib, High Cholesterol, Hypertension Respiratory History: Reports: Sleep Apnea 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: Psychiatric History: Reports: Anxiety, Depression Endocrine/Metabolic History: Reports: Obesity/BMI 30+ - Past Surgical History HEENT Surgical History: Reports: Tonsillectomy GI Surgical History: Reports: Cholecystectomy Female Surgical History: Reports: Section - SUBSTANCE USE Smoking Status *Q: Former Smoker Tobacco Use Within Last Twelve Months: No Second Hand Smoke Exposure: No Days Per Week of Alcohol Use: 1 Number of Drinks Per Day: 0 Total Drinks Per Week: 0 Recreational Drug Use History: No - HOME MEDS Home Medications: Home Meds Sertraline [Zoloft] 50 mg PO DAILY 08/31/14 [History] Apixaban [Eliquis] 5 mg PO BID #60 tablet 11/12/16 [Rx] Simvastatin [Zocor] 10 mg PO BEDTIME #30 tablet 11/12/16 [Rx] Losartan/Hydrochlorothiazide [Losartan-HCTZ 50-12.5 MG] 1 tab PO DAILY 10/08/17 [History] Diltiazem [Cardizem CD] 120 mg PO DAILY 10/10/17 [History] Metoprolol Succinate 100 mg PO DAILY 01/27/18 [History] - CURRENT (IN HOUSE) MEDS Current Meds: Current Medications Brimonidine Tartrate (Alphagan 0.2% Ophth Soln) 0 ml EYELF ASDIRECTED XIN Stop: 01/28/18 18:00 Last Admin: 01/28/18 09:51 Dose: 1 drop Cefuroxime Sodium (Zinacef) 0 mg EYELF ASDIRECTED XIN Stop: 01/28/18 18:00 Lidocaine HCl (Xylocaine-Mpf 1%) 0 ml INJECT ASDIRECTED XIN Stop: 01/28/18 18:00 Phenylephrine HCl (John-Synephrine 2.5% Ophth Soln) 0 ml EYELF ASDIRECTED XIN Stop: 01/28/18 18:00 Last Admin: 01/28/18 09:56 Dose: 1 drop Pilocarpine HCl (Pilocar 4% Ophth Soln) 0 ml EYELF ASDIRECTED XIN Stop: 01/28/18 18:00 Polymyxin/Trimethoprim Sulfate (Polytrim Ophth Soln) 0 ml EYELF ASDIRECTED XIN Stop: 01/28/18 18:00 Last Admin: 01/28/18 09:46 Dose: 1 drop Tetracaine HCl (Tetracaine 0.5% Steri-Unit Nataliya) 0 ml EYELF ASDIRECTED XIN Stop: 01/28/18 18:00 Tropicamide (Mydriacyl 1% Ophth Soln) 0 ml EYELF ASDIRECTED XIN Stop: 01/28/18 18:00
[2018-01-28] MEDS: Tetracaine HCl/PF 0.5% 4 ML Bottle EYELF SCH ×2 (10:51→11:13)
--- NOTE | 2018-01-28 11:27 | PCM48HPAN ---
Post Anesthesia Note - EVALUATION WITHIN 48HRS OF ANESTHETIC Vital Signs in Normal Range: Yes Patient Participated in Evaluation: Yes Respiratory Function Stable: Yes Airway Patent: Yes Cardiovascular Function Stable: Yes Hydration Status Stable: Yes Pain Control Satisfactory: Yes Nausea and Vomiting Control Satisfactory: Yes Mental Status Recovered: Yes Pulse Rate: 88 Resp Rate: 16 Temperature: 36.3 C Blood Pressure: 158/76
[2018-01-28 11:58] VITALS: BP 162/96
== END 2018-01-28 11:35 | disposition home or self-care (01) ==
LOC: JD.SDS 09:25
PROVIDERS: ATTEND Ophthalmology
DX: H25.043 Posterior subcapsular polar age-related cataract, bilateral (principal); H25.813 Combined forms of age-related cataract, bilateral; H02.831 Dermatochalasis of right upper eyelid; H02.834 Dermatochalasis of left upper eyelid; I10 Essential (primary) hypertension; I48.91 Unspecified atrial fibrillation; G47.30 Sleep apnea, unspecified; E78.00 Pure hypercholesterolemia, unspecified; E66.9 Obesity, unspecified; F32.9 Major depressive disorder, single episode, unspecified; Z79.899 Other long term (current) drug therapy; Z88.1 Allergy status to other antibiotic agents; Z87.891 Personal history of nicotine dependence
CPT/HCPCS: 66984; C1780; J0697; J2001; A9270-GY

== ENCOUNTER 2018-02-25 09:42 | Day surgery (SDC) | payer BC ==
[~2018-02-25 09:42] MED LIST changes: -Cefuroxime 10 MG/ML SYRINGE EYELF SCH; +Cefuroxime 10 MG/ML SYRINGE EYERT SCH; -Pilocarpine 4% Ophth Soln 15 ML Bot EYELF SCH; +Pilocarpine 4% Ophth Soln 15 ML Bot EYERT SCH
--- NOTE | 2018-02-25 10:20 | PCM.PREANE ---
Preanesthetic Assessment - Procedure Proposed Procedure: cataract right - Anesthesia/Transfusion/Family Hx Anesthesia History: Prior Anesthesia Without Reaction Family History of Anesthesia Reaction: No Transfusion History: No Prior Transfusion(s) - Review of Systems General: No Symptoms Pulmonary: Other (cpap at night) Cardiovascular: No Symptoms Gastrointestinal: No Symptoms Neurological: No Symptoms Other: Reports: Depression, Anxiety - Physical Assessment NPO Status Date: 02/24/18 NPO Status Time: 17:30 Pulse: 83 O2 Sat by Pulse Oximetry: 97 Respiratory Rate: 16 Blood Pressure: 143/75 Temperature: 97.2 F Height: 5 ft 8 in Weight: 147.418 kg ASA Class: 2 Mental Status: Alert & Oriented x3 Airway Class: Mallampati = 1 Dentition: Reports: Normal Dentition Thyro-Mental Finger Breadths: 3 Mouth Opening Finger Breadths: 3 ROM/Head Extension: Full Lungs: Clear to Auscultation, Normal Respiratory Effort Cardiovascular: Irregular Rhythm - Allergies Allergies/Adverse Reactions: Allergies Allergy/AdvReac Type Severity Reaction Status Date / Time erythromycin base Allergy Swelling Verified 01/27/18 15:08 - Blood Blood Available: No - Anesthesia Plan Beta Madelyn: Metoprolol Med Last Dose Date: 02/25/18 Med Last Dose Time: 08:00 - Acknowledgements Anesthesia Type Planned: MAC Pt an Appropriate Candidate for the Planned Anesthesia: Yes Alternatives and Risks of Anesthesia Discussed w Pt/Guardian: Yes Pt/Guardian Understands and Agrees with Anesthesia Plan: Yes PreAnesthesia Questionnaire HEENT History: Reports: Impaired Vision Cardiovascular History: Reports: Afib, High Cholesterol, Hypertension Respiratory History: Reports: Sleep Apnea, Other (See Below) (cpap at night) Gastrointestinal History: Reports: None 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: Psychiatric History: Reports: Anxiety, Depression Endocrine/Metabolic History: Reports: Obesity/BMI 30+ - Past Surgical History HEENT Surgical History: Reports: Tonsillectomy GI Surgical History: Reports: Cholecystectomy Female Surgical History: Reports: Section Musculoskeletal Surgical History: Reports: Other (See Below) (right ankle) - SUBSTANCE USE Smoking Status *Q: Former Smoker Tobacco Use Within Last Twelve Months: No Second Hand Smoke Exposure: No Days Per Week of Alcohol Use: 1 (rare) Recreational Drug Use History: No - HOME MEDS Home Medications: Home Meds Sertraline [Zoloft] 50 mg PO DAILY 08/31/14 [History] Apixaban [Eliquis] 5 mg PO BID #60 tablet 11/12/16 [Rx] Simvastatin [Zocor] 10 mg PO BEDTIME #30 tablet 11/12/16 [Rx] Losartan/Hydrochlorothiazide [Losartan-HCTZ 50-12.5 MG] 1 tab PO DAILY 10/08/17 [History] Diltiazem [Cardizem CD] 120 mg PO DAILY 10/10/17 [History] Metoprolol Succinate 100 mg PO DAILY 01/27/18 [History] - CURRENT (IN HOUSE) MEDS Current Meds: Current Medications Brimonidine Tartrate (Alphagan 0.2% Ophth Soln) 0 ml EYERT ASDIRECTED XIN Stop: 02/25/18 19:00 Cefuroxime Sodium (Zinacef) 0 mg EYERT ASDIRECTED XIN Stop: 02/25/18 19:00 Lidocaine HCl (Xylocaine-Mpf 1%) 0 ml INJECT ASDIRECTED XNI Stop: 02/25/18 19:00 Phenylephrine HCl (John-Synephrine 2.5% Ophth Soln) 0 ml EYERT ASDIRECTED XIN Stop: 02/25/18 19:00 Pilocarpine HCl (Pilocar 4% Ophth Soln) 0 ml EYERT ASDIRECTED XIN Stop: 02/25/18 19:00 Polymyxin/Trimethoprim Sulfate (Polytrim Ophth Soln) 0 ml EYERT ASDIRECTED XIN Stop: 02/25/18 19:00 Tetracaine HCl (Tetracaine 0.5% Steri-Unit Nataliya) 0 ml EYERT ASDIRECTED XIN Stop: 02/25/18 19:00 Tropicamide (Mydriacyl 1% Ophth Soln) 0 ml EYERT ASDIRECTED XIN Stop: 02/25/18 19:00
[2018-02-25] MEDS: Polymyxin B/Trimethoprim 10 ML Bottle EYERT SCH ×3 (10:24→12:13)
[2018-02-25] MEDS: Brimonidine 0.2% Ophth Soln 5 ML Bottle EYERT SCH ×3 (10:32→12:13)
[2018-02-25] MEDS: Phenylephrine 2.5% Ophth Soln 2 ML Bot EYERT SCH ×5 (10:37→11:53)
[2018-02-25] MEDS: Tropicamide 1% Ophth Soln 3 ML Bottle EYERT SCH ×4 (10:42→11:35)
--- NOTE | 2018-02-25 11:38 | PCM.PREANE ---
Preanesthetic Assessment - Procedure Proposed Procedure: Right eye cataract extraction with IOL - Anesthesia/Transfusion/Family Hx Anesthesia History: Prior Anesthesia Without Reaction Family History of Anesthesia Reaction: No Transfusion History: No Prior Transfusion(s) Intubation History: Unknown - Review of Systems General: No Symptoms Pulmonary: Other (COPD) Cardiovascular: Other (aortofemoro bypass on the right last july ) Gastrointestinal: Other (GERD) Neurological: No Symptoms Other: Reports: Depression, Anxiety - Physical Assessment NPO Status Date: 02/24/18 NPO Status Time: 17:30 Pulse: 83 O2 Sat by Pulse Oximetry: 97 Respiratory Rate: 16 Blood Pressure: 143/75 Temperature: 36.2 C Vital Signs: Last Vital Signs Temp 36.2 C 02/25/18 10:25 Pulse 83 02/25/18 10:25 Resp 16 02/25/18 10:25 BP 143/75 H 02/25/18 10:25 Pulse Ox 97 02/25/18 10:25 Height: 1.73 m Weight: 147.418 kg ASA Class: 3 Mental Status: Alert & Oriented x3 Airway Class: Mallampati = 2 Dentition: Reports: Normal Dentition Thyro-Mental Finger Breadths: 3 Mouth Opening Finger Breadths: 3 ROM/Head Extension: Full Lungs: Clear to Auscultation, Normal Respiratory Effort Cardiovascular: Regular Rate, Regular Rhythm - Allergies Allergies/Adverse Reactions: Allergies Allergy/AdvReac Type Severity Reaction Status Date / Time erythromycin base Allergy Swelling Verified 01/27/18 15:08 - Blood Blood Available: No - Anesthesia Plan Pre-Op Medication Ordered: None - Acknowledgements Anesthesia Type Planned: MAC (Pateint requesting IV sedation because her last cataract surgery here "did not go well." ) Pt an Appropriate Candidate for the Planned Anesthesia: Yes Alternatives and Risks of Anesthesia Discussed w Pt/Guardian: Yes Pt/Guardian Understands and Agrees with Anesthesia Plan: Yes PreAnesthesia Questionnaire HEENT History: Reports: Impaired Vision Cardiovascular History: Reports: Afib, High Cholesterol, Hypertension Respiratory History: Reports: Sleep Apnea, Other (See Below) (cpap at night) Gastrointestinal History: Reports: 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: Psychiatric History: Reports: Anxiety, Depression Endocrine/Metabolic History: Reports: Obesity/BMI 30+ - Past Surgical History HEENT Surgical History: Reports: Tonsillectomy GI Surgical History: Reports: Cholecystectomy Female Surgical History: Reports: Section Musculoskeletal Surgical History: Reports: Other (See Below) (right ankle) - SUBSTANCE USE Smoking Status *Q: Former Smoker Tobacco Use Within Last Twelve Months: No Second Hand Smoke Exposure: No Days Per Week of Alcohol Use: 1 (rare) Recreational Drug Use History: No - HOME MEDS Home Medications: Home Meds Sertraline [Zoloft] 50 mg PO DAILY 08/31/14 [History] Apixaban [Eliquis] 5 mg PO BID #60 tablet 11/12/16 [Rx] Simvastatin [Zocor] 10 mg PO BEDTIME #30 tablet 11/12/16 [Rx] Losartan/Hydrochlorothiazide [Losartan-HCTZ 50-12.5 MG] 1 tab PO DAILY 10/08/17 [History] Diltiazem [Cardizem CD] 120 mg PO DAILY 10/10/17 [History] Metoprolol Succinate 100 mg PO DAILY 01/27/18 [History] - CURRENT (IN HOUSE) MEDS Current Meds: Current Medications Brimonidine Tartrate (Alphagan 0.2% Ophth Soln) 0 ml EYERT ASDIRECTED XIN Stop: 02/25/18 19:00 Last Admin: 02/25/18 11:18 Dose: 1 drop Cefuroxime Sodium (Zinacef) 0 mg EYERT ASDIRECTED XIN Stop: 02/25/18 19:00 Lidocaine HCl (Xylocaine-Mpf 1%) 0 ml INJECT ASDIRECTED XIN Stop: 02/25/18 19:00 Phenylephrine HCl (John-Synephrine 2.5% Ophth Soln) 0 ml EYERT ASDIRECTED XIN Stop: 02/25/18 19:00 Last Admin: 02/25/18 11:27 Dose: 1 drop Pilocarpine HCl (Pilocar 4% Ophth Soln) 0 ml EYERT ASDIRECTED XIN Stop: 02/25/18 19:00 Polymyxin/Trimethoprim Sulfate (Polytrim Ophth Soln) 0 ml EYERT ASDIRECTED XIN Stop: 02/25/18 19:00 Last Admin: 02/25/18 11:12 Dose: 1 drop Tetracaine HCl (Tetracaine 0.5% Steri-Unit Nataliya) 0 ml EYERT ASDIRECTED XIN Stop: 02/25/18 19:00 Tropicamide (Mydriacyl 1% Ophth Soln) 0 ml EYERT ASDIRECTED XIN Stop: 02/25/18 19:00 Last Admin: 02/25/18 11:05 Dose: 1 drop
[2018-02-25] MEDS: Tetracaine HCl/PF 0.5% 4 ML Bottle EYERT SCH ×2 (11:45→12:00)
[2018-02-25 12:24] VITALS: BP 158/88
== END 2018-02-25 11:22 | disposition home or self-care (01) ==
LOC: JD.SDS 09:42
PROVIDERS: ATTEND Ophthalmology
DX: H25.811 Combined forms of age-related cataract, right eye (principal); H02.834 Dermatochalasis of left upper eyelid; H02.831 Dermatochalasis of right upper eyelid; E78.00 Pure hypercholesterolemia, unspecified; I10 Essential (primary) hypertension; Z98.42 Cataract extraction status, left eye; Z96.1 Presence of intraocular lens; Z79.899 Other long term (current) drug therapy
CPT/HCPCS: 66984; C1780; J0697; J2001; A9270-GY

== ENCOUNTER 2018-12-16 06:00 | Day surgery (SDC) | payer OTHER, BC ==
[2018-12-16] MEDS ORDERED: Propofol 200 MG/20 ML SDV ONE (06:54)
[2018-12-16] MEDS ORDERED: Midazolam 1 MG/ML 2 ML SDV ONE ×4 (06:54→07:59)
[2018-12-16] MEDS ORDERED: fentaNYL 100 MCG/2 ML SDV ONE ×4 (06:54→07:58)
[2018-12-16] MEDS ORDERED: Bupivacaine 0.25% 30 ML SDV ONE ×2 (06:59→07:35)
[2018-12-16] MEDS ORDERED: Sodium Chloride 0.9% 10 ML Syringe FLUSH PRN (07:00)
[2018-12-16] MEDS ORDERED: Lidocaine 1%/Sod Bicarbonate in NS 8.4% 1 ML Syringe IDERM PRN (07:00)
[2018-12-16] MEDS ORDERED: Lactated Ringers 1,000 ML IV SCH (07:00)
--- NOTE | 2018-12-16 07:04 | PCM.PREANE ---
Preanesthetic Assessment - Anesthesia/Transfusion/Family Hx Anesthesia History: Prior Anesthesia Without Reaction Family History of Anesthesia Reaction: No Transfusion History: No Prior Transfusion(s) Intubation History: Unknown - Review of Systems General: No Symptoms Pulmonary: No Symptoms Cardiovascular: No Symptoms, Other Gastrointestinal: No Symptoms Other: Reports: None - Physical Assessment NPO Status Date: 12/15/18 NPO Status Time: 16:00 O2 Sat by Pulse Oximetry: 96 Respiratory Rate: 16 Vital Signs: Last Vital Signs Temp 36.2 C 12/16/18 06:07 Pulse 82 12/16/18 06:07 Resp 16 12/16/18 06:07 BP 135/94 H 12/16/18 06:07 Pulse Ox 96 12/16/18 06:07 Height: 1.73 m Weight: 151.5 kg Mental Status: Alert & Oriented x3 Airway Class: Mallampati = 4 Dentition: Reports: Normal Dentition Thyro-Mental Finger Breadths: 2 Mouth Opening Finger Breadths: 3 ROM/Head Extension: Limited/Partial Lungs: Clear to Auscultation Cardiovascular: Other - Lab Values: Laboratory Last Values MRSA (PCR) Negative 12/14/18 09:21 - Allergies Allergies/Adverse Reactions: Allergies Allergy/AdvReac Type Severity Reaction Status Date / Time erythromycin base Allergy Swelling Verified 12/15/18 13:13 - Acknowledgements Anesthesia Type Planned: MAC Pt an Appropriate Candidate for the Planned Anesthesia: Yes Alternatives and Risks of Anesthesia Discussed w Pt/Guardian: Yes Pt/Guardian Understands and Agrees with Anesthesia Plan: Yes PreAnesthesia Questionnaire HEENT History: Reports: Cataract, Impaired Vision, Sinusitis Cardiovascular History: Reports: Afib, High Cholesterol, Hypertension, Other ( See Below) Respiratory History: Reports: Sleep Apnea, Other (See Below) Gastrointestinal History: Reports: None Genitourinary History: Reports: None 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: Neurological History: Reports: None Psychiatric History: Reports: Anxiety, Depression Endocrine/Metabolic History: Reports: Obesity/BMI 30+ Hematologic History: Reports: None Immunologic History: Reports: None Oncologic (Cancer) History: Reports: None Dermatologic History: Reports: None - Past Surgical History Head Surgeries/Procedures: Reports: None HEENT Surgical History: Reports: Adenoidectomy, Cataract Surgery, Myringotomy w Tube(s), Tonsillectomy Cardiovascular Surgical History: Reports: None GI Surgical History: Reports: Cholecystectomy Female Surgical History: Reports: Section Male Surgical History: Reports: None Endocrine Surgical History: Reports: None Neurological Surgical History: Reports: None Musculoskeletal Surgical History: Reports: Other (See Below) Other Musculoskeletal Surgeries/Procedures:: right ankle surgery with hardware Oncologic Surgical History: Reports: None Dermatological Surgical History: Reports: None - SUBSTANCE USE Smoking Status *Q: Former Smoker Recreational Drug Use History: No - HOME MEDS Home Medications: Home Meds Sertraline [Zoloft] 50 mg PO DAILY 08/31/14 [History] Apixaban [Eliquis] 5 mg PO BID #60 tablet 11/12/16 [Rx] Simvastatin [Zocor] 10 mg PO BEDTIME #30 tablet 11/12/16 [Rx] Losartan/Hydrochlorothiazide [Losartan-HCTZ 50-12.5 MG] 1 tab PO DAILY 10/08/17 [History] Diltiazem [Cardizem CD] 120 mg PO DAILY 10/10/17 [History] Metoprolol Succinate 100 mg PO DAILY 01/27/18 [History] - CURRENT (IN HOUSE) MEDS Current Meds: Current Medications Lactated Ringer's (Ringers, Lactated) 1,000 mls @ 125 mls/hr IV ASDIRECTED XIN Stop: 12/16/18 23:00 Last Admin: 12/16/18 06:28 Dose: 125 mls/hr Lidocaine/Sodium Bicarbonate (Buffered Lidocaine 1% In Ns 8.4%) 0.25 ml IDERM ONETIME PRN PRN Reason: Prior to IV Start Stop: 12/16/18 23:00 Last Admin: 12/16/18 06:28 Dose: 0.25 ml Sodium Chloride (Saline Flush) 10 ml FLUSH ASDIRECTED PRN PRN Reason: Keep Vein Open Stop: 12/16/18 23:00 Discontinued Medications Fentanyl (Sublimaze) Confirm Administered Dose 100 mcg .ROUTE .STK-MED ONE Stop: 12/16/18 06:55 Midazolam HCl (Versed 1 Mg/Ml) Confirm Administered Dose 2 mg .ROUTE .STK-MED ONE Stop: 12/16/18 06:55 Propofol (Diprivan 20 Ml) Confirm Administered Dose 200 mg .ROUTE .STK-MED ONE Stop: 12/16/18 06:55
[2018-12-16] MEDS ORDERED: Ketorolac 30 MG/ML SDV ONE (07:20)
[2018-12-16] MEDS ORDERED: Ondansetron 4 MG/2 ML SDV ONE ×2 (07:20→09:05)
[2018-12-16] MEDS ORDERED: ceFAZolin 1 GM Vial ONE ×3 (07:24→07:31)
[2018-12-16] MEDS ORDERED: Lactated Ringers 1,000 ML ONE (08:00)
--- NOTE | 2018-12-16 08:23 | PCM.POSTAN ---
POST ANESTHESIA ASSESSMENT - RESPIRATORY Respiratory Status: Respiratory Rate WNL, Airway Patent, O2 Saturation Stable - CARDIOVASCULAR CV Status: Pulse Rate WNL, Blood Pressure Stable - GASTROINTESTINAL GI Status: No Symptoms - POST OP HYDRATION Hydration Status: Adequate & Stable
--- NOTE | 2018-12-16 08:36 | CR ---
Right ankle: Single fluoroscopic spot view is obtained utilizing C-arm device of the right ankle. Comparison: Prior right ankle exam of 04/14/18. Study shows lucent defects within the fibula compatible with recent hardware removal. This hardware was seen on previous exam. Fluoroscopy time given as 1.1 seconds. Impression: 1. Procedural study as noted above. Diagnostic code #2
[2018-12-16] MEDS ORDERED: Acetaminophen/HYDROcodone 325-5 MG Tab PO PRN (08:58)
[2018-12-16] MEDS ORDERED: Ondansetron 4 MG/2 ML SDV IVPUSH PRN (09:04)
[2018-12-16] MEDS ORDERED: Haloperidol Lactate 5 MG/ML SDV IVPUSH PRN (09:57)
[2018-12-16 11:19] VITALS: BP 112/67
--- NOTE | 2018-12-21 11:15 | PCM.OPNOTE ---
- General Post-Op/Procedure Note Date of Surgery/Procedure: 12/16/18 Operative Procedure(s): right ankle deep hardware removal Pre Op Diagnosis: right ankle painful hardware Post-Op Diagnosis: Same Anesthesia Technique: General LMA, Local Primary Surgeon: Mark Anthony Miles Anesthesia Provider: Cecil Washington Toxicologist: Camille Staton EBL in mLs: 5 Complications: None Condition: Good
--- NOTE | 2018-12-21 11:40 | OR ---
DATE OF OPERATION: 12/16/2018 SURGEON: Mark Anthony Miles MD OPERATION PERFORMED: Right ankle deep hardware removal. PREOPERATIVE DIAGNOSIS: Right ankle painful hardware. POSTOPERATIVE DIAGNOSIS: Right ankle painful hardware. ANESTHESIA: General LMA with local. ANESTHESIA PROVIDER: Cecil Washington CRNA. RN HOSPICE: Camille Staton PA-C. ESTIMATED BLOOD LOSS: Less than 5 mL. COMPLICATIONS: None. CONDITION: Stable. DESCRIPTION OF PROCEDURE: The patient was identified in the preop holding area. Proper site was marked and identified by surgeon. The patient was taken back to the operating theater, where after adequate anesthesia, the patient's right upper extremity was sterilely prepped and draped in the usual sterile fashion. OR time-out was performed. The patient received 2 g of IV Ancef. At this time, right lower extremity was exsanguinated. Tourniquet was insufflated to 250 mmHg. Previous incision roughly about two-thirds of the previous incision was utilized. This was taken down to the plate. Plate was identified. There was no signs of drainage or signs of infection. At this time, all the previous screws were removed under direct visualization. The plate was then taken off. It was found to have complete removal of hardware under C-arm fluoroscopy. At this time, any bony edges were rongeured and curetted down. All screw holes from previous were curetted. Adequate saline was then irrigated through the wound. 2-0 Vicryl was used subcutaneously and faviola used for the skin. The patient was placed in a sterile soft dressing and a CAM boot, and will follow up in clinic in 2 weeks time. MMODAL /[id number]
== END 2018-12-16 11:10 | disposition home or self-care (01) ==
LOC: JD.SDS 06:00
PROVIDERS: ATTEND Orthopaedic Surgery
DX: T84.84XA Pain due to internal orthopedic prosthetic devices, implants and grafts, initial encounter (principal); I10 Essential (primary) hypertension; I48.1 Persistent atrial fibrillation; E78.2 Mixed hyperlipidemia; F41.8 Other specified anxiety disorders; G47.33 Obstructive sleep apnea (adult) (pediatric); E66.9 Obesity, unspecified; Z68.42 Body mass index [BMI] 45.0-49.9, adult; Z88.1 Allergy status to other antibiotic agents; Z87.891 Personal history of nicotine dependence; Z79.01 Long term (current) use of anticoagulants; Z79.899 Other long term (current) drug therapy
CPT/HCPCS: 20680; 76000; 87641; A9270; J0690; J1630; J1885; J2250; J2405; J2704; J3010; J3490; J7120; 01480

== ENCOUNTER 2021-04-26 17:19 | Emergency (ER) | payer OTHER, MEDICAID ==
--- NOTE | 2021-04-26 17:50 | EDM.PDOC ---
ED HPI GENERAL MEDICAL PROBLEM - General Chief Complaint: Head Injury Stated Complaint: FALL/HEAD INJURY Time Seen by Provider: 04/26/21 17:42 - History of Present Illness INITIAL COMMENTS - FREE TEXT/NARRATIVE: 60-year-old female presents the emergency room after slipping falling hitting her head and developing a stiff neck. This occurred a short time prior to arrival in the emergency room patient slipped on some slippery wood on a deck fell backwards striking her head. She has developed significant discomfort in her neck mostly on the left lateral side. She has no loss of consciousness she has had a headache. No nausea or vomiting. Complicating the situation is the patient is on Eliquis for A. fib Head Pain Score (Numeric/FACES): 8 - Related Data Allergies Allergy/AdvReac Type Severity Reaction Status Date / Time erythromycin base Allergy Swelling Verified 04/26/21 17:40 Home Meds: Home Meds Sertraline [Zoloft] 50 mg PO DAILY 08/31/14 [History] Apixaban [Eliquis] 5 mg PO BID #60 tablet 11/12/16 [Rx] Simvastatin [Zocor] 10 mg PO BEDTIME #30 tablet 11/12/16 [Rx] Losartan/Hydrochlorothiazide [Losartan-HCTZ 50-12.5 MG] 1 tab PO DAILY 10/08/17 [History] Diltiazem [Cardizem CD] 120 mg PO DAILY 10/10/17 [History] Metoprolol Succinate 100 mg PO DAILY 01/27/18 [History] Acetaminophen/HYDROcodone [[place] 325-5 MG] 1 - 2 tab PO Q6H PRN #40 tablet 12/16/18 [Rx] Ondansetron [Zofran ODT] 4 mg PO Q6H PRN #20 tab.dis 12/16/18 [Rx] Past Medical History HEENT History: Reports: Cataract, Impaired Vision, Sinusitis Cardiovascular History: Reports: Afib, High Cholesterol, Hypertension, Other (See Below) Respiratory History: Reports: Sleep Apnea, Other (See Below) Gastrointestinal History: Reports: None Genitourinary History: Reports: None 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: Neurological History: Reports: None Psychiatric History: Reports: Anxiety, Depression Endocrine/Metabolic History: Reports: Obesity/BMI 30+ Hematologic History: Reports: None Immunologic History: Reports: None Oncologic (Cancer) History: Reports: None Dermatologic History: Reports: None - Past Surgical History Head Surgeries/Procedures: Reports: None HEENT Surgical History: Reports: Adenoidectomy, Cataract Surgery, Myringotomy w Tube(s), Tonsillectomy Cardiovascular Surgical History: Reports: None GI Surgical History: Reports: Cholecystectomy Female Surgical History: Reports: Section Male Surgical History: Reports: None Endocrine Surgical History: Reports: None Neurological Surgical History: Reports: None Musculoskeletal Surgical History: Reports: Other (See Below) Other Musculoskeletal Surgeries/Procedures:: right ankle surgery with hardware Oncologic Surgical History: Reports: None Dermatological Surgical History: Reports: None Social & Family History - Family History Family Medical History: No Pertinent Family History - Caffeine Use Caffeine Use: Reports: None - Living Situation & Occupation Living situation: Reports: Occupation: Employed ED ROS GENERAL - Review of Systems Review Of Systems: See Below Constitutional: Reports: No Symptoms HEENT: Reports: No Symptoms Respiratory: Reports: No Symptoms Cardiovascular: Reports: No Symptoms GI/Abdominal: Reports: No Symptoms : Reports: No Symptoms Musculoskeletal: Reports: Neck Pain Skin: Reports: No Symptoms Neurological: Reports: Headache Psychiatric: Reports: No Symptoms ED EXAM, HEAD INJURY - Physical Exam Exam: See Below Exam Limited By: No Limitations General Appearance: Alert, No Apparent Distress Head: Atraumatic, Normocephalic Nexus Criteria: Posterior, Midline Cervical Tenderness. No: Evidence of Intoxication, Altered Level of Consciousness, Focal Neurological Deficit, Painful Distraction Injuries Eyes: Bilateral Eye: EOMI, Normal Inspection, PERRL Ears: Normal External Exam, Normal Canal, Hearing Grossly Normal, Normal TMs Nose: Normal Inspection, Normal Mucousa, No Blood Throat/Mouth: Normal Inspection, Normal Lips, Normal Teeth, Normal Gums, Normal Oropharynx, Normal Voice, No Airway Compromise Neck: Limited Range of Motion, Muscle Spasm, Spinous Processes Tender (Vague discomfort in the mid cervical area no significant discomfort in the upper thoracic or upper cervical area) Respiratory: No Respiratory Distress, Lungs Clear, Normal Breath Sounds Cardiovascular: Regular Rate, Rhythm, No Edema, No Murmur GI/Abdominal Exam: Normal Bowel Sounds, Soft, Non-Tender, Other (obese) 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 CT of the head is negative for acute intracranial abnormalities. Discussed the findings of both studies with the patient and she is relieved. I will discharge her with the neck spasm she is having and her driving requirements at work I will take her off work tomorrow. Departure - Departure Time of Disposition: 19:25 Disposition: Home, Self-Care 01 Clinical Impression: Head injury, Cervical strain, acute - Discharge Information Referrals: Cara Espinosa NP [Primary Care Provider] - Forms: ED Department Discharge, ED Return to Work/School Form Additional Instructions: Return to the emergency room with any questions problems or worsening symptoms. Tylenol as needed for the discomfort. With being on a blood thinner you should avoid ibuprofen Naprosyn or medications like this. 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 Sepsis Event Note (ED) - Evaluation Sepsis Screening Result: No Definite Risk - Focused Exam Vital Signs: Vital Signs Temp Pulse Resp BP Pulse Ox 04/26/21 17:37 36.1 C 105 H 16 166/78 H 96
--- NOTE | 2021-04-26 18:35 | CT ---
CT cervical spine Technique: Multiple axial sections were obtained from above C1 inferiorly mid level of the T2 vertebral body. Reconstructed coronal and sagittal images were obtained. Comparison: Previous CT cervical spine study of 10/08/17. Findings: Degenerative change is noted between the dens and anterior arch of C1. There is moderate disc space narrowing at C4-5, moderate to severe disc space narrowing at C5-6 and mild disc space narrowing at C6-7. Posterior osteophytes are noted at C6-7. Slight scattered anterior osteophytes are seen. Moderate narrowing is noted on the right side at C5-6 within the neural foramina. Left neural foramina at C5-6 is fairly well patent. Other neural foramina are well preserved. No central canal stenosis is seen. Degenerative spurring is noted within the uncovertebral joint at C5-6 on the right side and minimally on the left side. Slight scattered degenerative change is noted within the apophyseal joints. No fracture is seen. No abnormal subluxation is noted. Impression: 1. Degenerative change as noted above. 2. No acute fracture or subluxation is seen. Diagnostic code #2
--- NOTE | 2021-04-26 18:35 | CT ---
Head CT Technique: Multiple axial sections through the brain were obtained. Intravenous contrast was not utilized. Reconstructed coronal and sagittal images were obtained. Comparison: Prior head CT study of 10/08/17. Ventricles along with basal cisterns and sulci over the convexities are within normal limits for the patient's age. No abnormal parenchymal densities are seen. No evidence of intracranial hemorrhage is seen. No midline shift or mass is seen. Bone window settings were reviewed which show no acute calvarial abnormality. Visualized paranasal sinuses and mastoid sinuses are clear. Impression: 1. Nothing acute is seen on noncontrast head CT study. Diagnostic code #1
[2021-04-26 19:36] VITALS: BP 138/83; PULSE 80
== END 2021-04-26 19:30 | disposition home or self-care (01) ==
LOC: JD.ED 17:19
DX: S16.1XXA Strain of muscle, fascia and tendon at neck level, initial encounter (principal); S09.90XA Unspecified injury of head, initial encounter; I48.91 Unspecified atrial fibrillation; E78.00 Pure hypercholesterolemia, unspecified; I10 Essential (primary) hypertension; E66.9 Obesity, unspecified; Z68.43 Body mass index [BMI] 50.0-59.9, adult; Z79.01 Long term (current) use of anticoagulants; Z79.899 Other long term (current) drug therapy; Z88.1 Allergy status to other antibiotic agents; W01.198A Fall on same level from slipping, tripping and stumbling with subsequent striking against other object, initial encounter
CPT/HCPCS: 70450; 70450-26; 72125; 72125-26; 99283; 99283-25

== ENCOUNTER 2022-03-28 12:44 | Emergency (ER) | payer MEDICAID, OTHER ==
[2022-03-28 13:08] VITALS: BP 155/98
[2022-03-28 14:13] VITALS: PULSE 87
== END 2022-03-28 14:55 | disposition home or self-care (01) ==
LOC: JD.ED 12:44
DX: S09.90XA Unspecified injury of head, initial encounter (principal); E78.00 Pure hypercholesterolemia, unspecified; I10 Essential (primary) hypertension; E66.9 Obesity, unspecified; Z68.43 Body mass index [BMI] 50.0-59.9, adult; Z88.1 Allergy status to other antibiotic agents; Z79.899 Other long term (current) drug therapy; Z79.01 Long term (current) use of anticoagulants; Z90.49 Acquired absence of other specified parts of digestive tract; W01.10XA Fall on same level from slipping, tripping and stumbling with subsequent striking against unspecified object, initial encounter
CPT/HCPCS: 70450; 70450-26; 99283; 99284